=== PATIENT | male | born 1995 | race Caucasian/White ===

== ENCOUNTER 2018-09-06 12:14 | Emergency (ER) | payer SELFPAY ==
[~2018-09-06] VITALS: Ht 182.9 cm; Wt 136.1 kg
[~2018-09-06 12:14] MED LIST: SINGULAIR
--- NOTE | 2018-09-06 12:44 | ED Lower Extremity ---
General Chief Complaint: Lower Extremity Stated Complaint: RT FOOT INJ Nursing Triage Note: PT AMB TO TRIAGE WITH COMPLAINT OF RIGHT ANKLE INJURY. STATES HE CAUGHT FOOT IN LADDER AT WORK YESTERDAY, STATES HE HEARD A POP. STATES LAST NIGHT HE HAD TO RUN THROUGH A FIELD DUE TO STORMS AND STATES IT AGGRAVATED HIS ANKLE MORE. Nursing Sepsis Screen: No Definite Risk Source: patient Exam Limitations: no limitations History of Present Illness Date Seen by Provider: September 06, 2018 Time Seen by Provider: 12:41 Initial Comments To ER with reports of right ankle injury. He was at work yesterday when he stepped down off of a ladder, heard a pop in the ankle. Then he had to run t hrough a field last night to get to a storm assisted and thinks that he worsened whenever injury he initially sustained. No knee pain. Onset: just prior to arrival Severity: moderate Pain/Injury Location: right foot, right ankle Method of Injury: fell, twisted Modifying Factors: Worse With Movement Allergies and Home Medications Allergies Coded Allergies: No Known Allergies (Unverified Allergy, Mild, 09/18/08) Home Medications Hydrocodone/Acetaminophen 1 Each Tablet, 1 TAB PO Q4-6HR Prescribed by: JACQUELINE GOLDEN on 09/06/18 1322 Patient Home Medication List Home Medication List Reviewed: Yes Review of Systems Constitutional: see HPI EENTM: see HPI Respiratory: no symptoms reported Cardiovascular: no symptoms reported Genitourinary: no symptoms reported Musculoskeletal: see HPI Skin: no symptoms reported Psychiatric/Neurological: No Symptoms Reported Past Bmqyzfx-Avukzt-Sshdpy Hx Patient Social History Alcohol Use: Occasionally Uses Recreational Drug Use: No Smoking Status: Never a Smoker Recent Foreign Travel: No Contact w/Someone Who Travel: No Recent Infectious Disease Expo: No Immunizations Up To Date Tetanus Booster (TDap): Less than 5yrs PED Vaccines UTD: Yes Seasonal Allergies Seasonal Allergies: No Past Medical History Asthma Reproductive Disorders: No Adverse Reaction/Blood Tranf: No Physical Exam Vital Signs Vital Signs - First Documented 09/06/18 12:23 Pulse 90 Resp 20 B/P (MAP) 150/82 (104) Pulse Ox 97 O2 Delivery Room Air Capillary Refill : Less Than 3 Seconds Height, Weight, BMI Height: 6'0" Weight: 300lbs. oz. 136.513050wb; BMI Method:Stated General Appearance: WD/WN, no apparent distress HEENT: PERRL/EOMI, normal ENT inspection Respiratory: no respiratory distress, no accessory muscle use Hips: bilateral hip non-tender, bilateral hip normal inspection, bilateral hip normal range of motion Legs: bilateral leg non-tender, bilateral leg normal inspection, bilateral leg normal range of motion Knees: bilateral knee non-tender, bilateral knee normal inspection, bilateral knee normal range of motion Ankles: right ankle pain, right ankle soft tissue tenderness, right ankle swelling Feet: right foot pain, right foot soft tissue tenderness, right foot swelling Neurologic/Psychiatric: alert, normal mood/affect, oriented x 3 Skin: normal color, warm/dry Progress/Results/Core Measures Results/Orders My Orders Orders - JACQUELINE GOLDEN APRN Ankle, Right, 3 Views (09/06/18 12:36) Foot, Right, 3 View (09/06/18 12:36) Crutches (09/06/18 12:36) Vital Signs/I&O 09/06/18 12:23 Pulse 90 Resp 20 B/P (MAP) 150/82 (104) Pulse Ox 97 O2 Delivery Room Air Blood Pressure Mean: 104 Diagnostic Imaging Diagonstic Imaging: Xray Comments NAME: BLAINE GONZÁLES [facility] REC#: [id number] PT STATUS: REG ER : 1995 PHYSICIAN: JACQUELINE GOLDEN APRN ADMIT DATE: 09/06/18/ER Draft Date of Exam:09/06/18 FOOT, RIGHT, 3 VIEW INDICATION: Fell off a ladder with injury to right foot. TIME OF EXAM: 12:56 PM 3 views of the right foot were obtained. FINDINGS: Lateral portion of the right foot does show an osseous density just lateral to the anterior aspect of the calcaneus. This is suspicious for fracture fragment. This measures approximately 8 mm in size. Remainder of the midfoot is unremarkable. The metatarsals appear to be intact. The phalanges are intact. Joint spaces are maintained IMPRESSION: Findings suspicious for fracture fragment along the lateral mid foot, perhaps arising from the lateral aspect of the calcaneus. Clinical correlation for pain at this location is recommended. No other abnormality is seen. Dictated on workstation # [id number] Dict: 09/06/18 1313 Trans: 09/06/18 1319 [id number] Interpreted by: FAITH AKINS MD Electronically signed by: Departure Impression Primary Impression: Avulsion fracture of right ankle Additional Impression: Right ankle sprain Qualified Codes: S93.401A - Sprain of unspecified ligament of right ankle, initial encounter Disposition: HOME, SELF-CARE Condition: Stable Departure-Patient Inst. Decision time for Depature: 12:44 Referrals: MATTHEW ARGUETA DPM NO,LOCAL PHYSICIAN (PCP) Primary Care Physician JITENDRA BARLOW MD, MICHAEL P MD Patient Instructions: Ankle Fracture (DC) Add. Discharge Instructions: 1. Wear the boot at all times except when sleeping or showering for the next 3-4 weeks. Follow-up with one of the orthopedic surgeons listed within the next few weeks to ensure that this is healing appropriately. Do not bear any weight on the right ankle for about 2 weeks or until released by orthopedics. Use crutches when walking. Follow up with Dr Barlow on MondaySeptember 11 at 10AM Scripts Hydrocodone/Acetaminophen ([place] 5-325 Tablet) 1 Each Tablet 1 TAB PO Q4-6HR for Pain MDD 10 TABS for 7 Days, #14 TAB Prov: JACQUELINE GOLDEN APRN 09/06/18 Work/School Note: Work Release Form Date Seen in the Emergency Department: September 06, 2018 Return to Work: September 09, 2018 JACQUELINE GOLDEN APRN September 06, 2018 12:44
--- NOTE | 2018-09-06 13:17 | Diagnostic Imaging Report ---
INDICATION: Fall with right ankle injury. AP, oblique and lateral views of the right ankle are obtained. FINDINGS: There is incompletely corticated ossific fragment projecting lateral to the hindfoot. This may represent calcaneal avulsion fracture. Ankle mortise is intact. There is no abnormal lytic or sclerotic focus. IMPRESSION: Possible avulsion along the lateral hindfoot. Clinical correlation site of pain would be useful. Otherwise no ankle abnormality is seen. Dictated by: Dictated on workstation # [id number]
--- NOTE | 2018-09-06 13:20 | Diagnostic Imaging Report ---
INDICATION: Fell off a ladder with injury to right foot. TIME OF EXAM: 12:56 PM 3 views of the right foot were obtained. FINDINGS: Lateral portion of the right foot does show an osseous density just lateral to the anterior aspect of the calcaneus. This is suspicious for fracture fragment. This measures approximately 8 mm in size. Remainder of the midfoot is unremarkable. The metatarsals appear to be intact. The phalanges are intact. Joint spaces are maintained IMPRESSION: Findings suspicious for fracture fragment along the lateral mid foot, perhaps arising from the lateral aspect of the calcaneus. Clinical correlation for pain at this location is recommended. No other abnormality is seen. Dictated by: Dictated on workstation # [id number]
[2018-09-06] MEDS ORDERED: HYDR-4226 PO (13:22)
[2018-09-06 13:40] VITALS: BP 145/80
--- OUTSIDE RECORDS SUMMARY | 2018-09-06 22:28 | XMS REPORT ---
Author Author BRE JOHANSEN [facility] eClinicalWorks Address Unknown Phone Unavailable Care Team Providers Care Wheel Lacer And Truer Name Role Phone BRE JOHANSEN CP Unavailable Allergies, Adverse Reactions, Alerts Substance Reaction Event Type N.K.D.A. 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 Problem Elevated blood pressure reading without diagnosis of hypertension 796.2 Active Problem Obesity, unspecified 278.00 Active Problem Acute sinusitis, unspecified 461.9 Active Medications No Known Medications Procedures Procedure Coding System Code Date Office Visit, Est Pt., Level 3 CPT-4 58409 Dec 19, 2014 Vital Signs Date/Time: Dec 19, 2014 Temperature 98.3 F BMIPercentile 97.74 % Weight 230.6 lbs Height 72 in BMI 31.27 Index Blood Pressure Diastolic 68 mmHg Blood Pressure Systolic 126 mmHg Cardiac Monitoring Heart Rate 72 bpm Wt Percentile 98.71 % Ht Percentile 83.76 % Results No Known Results Summary Purpose eClinicalWorks Submission
--- OUTSIDE RECORDS SUMMARY | 2018-09-06 22:28 | XMS REPORT ---
Author Author Migration, Doctor Organization [facility] Address Unknown Phone Unavailable Care Team Providers Care Enterprise Analyst Name Role Phone Migration, Doctor Unavailable Unavailable PROBLEMS Unknown Problems ALLERGIES No Information ENCOUNTERS Encounter Location Date Diagnosis [facility] [address] [address] August, [facility] [address] [address] May, Gastroesophageal reflux disease, esophagitis presence not specified K21.9 [facility] [address] [address] Apr, Gastritis K29.70 and Bilateral impacted cerumen H61.23 [place] [address] [address] 14 Jan, 2015 Acute nasopharyngitis J00 [place] [address] [address] 08 Dec, 2014 Routine child health exam V20.2 ; Gastroenteritis 558.9 ; Dietary counseling and surveillance V65.3 and Exercise counseling V65.41 [place] [address] [place] [id number] [place] [address] 04 Dec, 2014 Gastroenteritis 558.[address] [facility] [address] [place] [id number] [place] [id number] 02 Dec, 2014 Encounter for dental examination V72.2 [place] [address] [address] 14 Jul, 2014 [place] [address] [address] 13 Jul, 2014 [facility] [address] [address] Jun, [facility] [address] [address] Jun, [facility] [address] [address] May, [facility] [address] [place] [address] May, [facility] [id number] [place] [address] Jan, [facility] [address] [address] Jan, [facility] [id number] [place] [address] Dec, [facility] [id number] [place] [address] Dec, [facility] [address] [place] [address] Dec, [facility] [address] [place] [address] Dec, [facility] [address] [place] [address] Nov, IMMUNIZATIONS No Known Immunizations SOCIAL HISTORY Never Assessed [place] [facility] [place] VITAL SIGNS MEDICATIONS Unknown Medications RESULTS No Results PROCEDURES No Known procedures INSTRUCTIONS MEDICATIONS ADMINISTERED No Known Medications MEDICAL (GENERAL) HISTORY Type Description Date Medical History congenital heart defect (hole in heart) Hospitalization History RSV as child
--- OUTSIDE RECORDS SUMMARY | 2018-09-06 22:28 | XMS REPORT ---
Author Author BRE JOHANSEN [facility] eClinicalWorks Address Unknown Phone Unavailable Care Team Providers Care Posting Clerk Name Role Phone BRE JOHANSEN CP Unavailable Allergies, Adverse Reactions, Alerts Substance Reaction Event Type N.K.D.A. 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 Age 12-17 CPT-4 76352 Dec 23, 2014 Office Visit, Est Pt., Level 3 CPT-4 28599 Dec 23, 2014 VISUAL ACUITY SCREEN CPT-4 35182 Dec 23, 2014 Vital Signs Date/Time: Dec 23, 2014 BMIPercentile 97.95 % Temperature 98.4 F Wt Percentile 98.84 % Weight 233.2 lbs Height 72 in Hearing Right ear: 1000:P, 2000:P, 4000:P, 6000:P, Left ear: 1000:P, 2000:P, 4000:P, 6000:P P / L Blood Pressure Diastolic 66 mmHg Blood Pressure Systolic 126 mmHg Cardiac Monitoring Heart Rate 70 bpm Ht Percentile 83.76 % BMI 31.62 Index Results No Known Results Summary Purpose eClinicalWorks Submission
--- OUTSIDE RECORDS SUMMARY | 2018-09-06 22:28 | XMS REPORT ---
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
--- OUTSIDE RECORDS SUMMARY | 2018-09-06 22:28 | XMS REPORT ---
Author Author BRIGETTE ANGEL Organization eClinicalWorks Address Unknown Phone Unavailable Care Team Providers Care Hand Bootmaker Name Role Phone BRIGETTE ANGEL CP Unavailable Allergies, Adverse Reactions, Alerts Substance Reaction Event Type N.K.D.A. Info Not Available Non Drug Allergy Problems Problem Type Condition Code Onset Dates Condition Status Assessment Bilateral impacted cerumen H61.23 Active Problem Dizziness and giddiness 780.4 Active Assessment Gastritis K29.70 Active Problem Influenza with other respiratory manifestations [...] Instructions Start Date End Date Status Dosage ZyrTEC NDC 0 10 MG Orally not defined Zantac 150 Maximum Strength NDC [address]-39 150 MG Orally Twice a day Apr 22, 2015 1 tablet Procedures Procedure Coding System Code Date Office Visit, Est Pt., Level 3 CPT-4 48944 Apr 22, 2015 Vital Signs Date/Time: Apr 22, 2015 Temperature 99.4 F BMIPercentile 98.58 % Weight 238 lbs Height 71 in BMI 33.19 Index Blood Pressure Diastolic 72 mmHg Blood Pressure Systolic 118 mmHg Cardiac Monitoring Heart Rate 56 bpm Wt Percentile 98.94 % Ht Percentile 72.35 % Results No Known Results Summary Purpose eClinicalWorks Submission
--- OUTSIDE RECORDS SUMMARY | 2018-09-06 22:28 | XMS REPORT ---
Author Author ROBIN GRAHAM Organization eClinicalWorks Address Unknown Phone Unavailable Care Team Providers Care Carpet Yarn Winder Operator Name Role Phone ROBIN GRAHAM CP Unavailable Allergies, Adverse Reactions, Alerts Substance Reaction Event Type N.K.D.A. 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 Problem Elevated blood pressure reading without diagnosis of hypertension 796.2 Active Problem Obesity, unspecified 278.00 Active Problem Acute sinusitis, unspecified 461.9 Active Medications No Known Medications Procedures Procedure Coding System Code Date HETEROPHILE ANTIBODIES CPT-4 09336 Jan 28, 2015 Office Visit, Est Pt., Level 3 CPT-4 14983 Jan 28, 2015 STREP A ASSAY W/OPTIC CPT-4 13878 Jan 28, 2015 Vital Signs Date/Time: Jan 28, 2015 Cardiac Monitoring Heart Rate 88 bpm Temperature 98.0 F Weight 232.1 lbs Wt Percentile 98.75 % Blood Pressure Diastolic 84 mmHg Blood Pressure Systolic 130 mmHg Results Name Result Date Reference Range Unit Abnormality Flag MONO TEST (IN HOUSE) Summary Purpose eClinicalWorks Submission
--- OUTSIDE RECORDS SUMMARY | 2018-09-06 22:28 | XMS REPORT | Continuity of Care Document ---
Author Organization Unknown Address Unknown Allergies Active Description Code Type Severity Reaction Onset Reported/Identified Relationship to Patient Clinical Status Yes NKANo Known Allergies NKA Miscellaneous Allergy Mild N/A 09/18/2008 Medications There is no data. Problems Date Dx Coded Attending Type Code Diagnosis Diagnosed By 04/30/2012 Ot 079.99 04/30/2012 Ot 787.03 04/30/2012 Ot 787.91 12/14/2012 746.9 UNSPECIFIED CONGENITAL ANOMALY OF HEART 12/14/2012 780.4 DIZZINESS AND VERTIGO 12/14/2012 796.2 ELEVATED BLOOD PRESSURE READING WITHOUT DIAGNOSIS OF HYPERTENSION 12/14/2012 746.9 UNSPECIFIED CONGENITAL ANOMALY OF HEART 12/14/2012 780.4 DIZZINESS AND VERTIGO 12/14/2012 796.2 ELEVATED BLOOD PRESSURE READING WITHOUT DIAGNOSIS OF HYPERTENSION 12/14/2012 KHOA HAMPTON MD 746.9 UNSPECIFIED CONGENITAL ANOMALY OF HEART 12/14/2012 KHOA HAMPTON MD 780.4 DIZZINESS AND VERTIGO 12/14/2012 KHOA HAMPTON MD 796.2 ELEVATED BLOOD PRESSURE READING WITHOUT DIAGNOSIS OF HYPERTENSION 12/14/2012 KHOA HAMPTON MD 746.9 UNSPECIFIED CONGENITAL ANOMALY OF HEART 12/14/2012 KHOA HAMPTON MD 780.4 DIZZINESS AND VERTIGO 12/14/2012 KHOA HAMPTON MD 796.2 ELEVATED BLOOD PRESSURE READING WITHOUT DIAGNOSIS OF HYPERTENSION 12/14/2012 ALVARADO DUBOIS DO 746.9 UNSPECIFIED CONGENITAL ANOMALY OF HEART 12/14/2012 ALVARADO DUBOIS DO 780.4 DIZZINESS AND VERTIGO 12/14/2012 ALVARADO DUBOIS DO 796.2 ELEVATED BLOOD PRESSURE READING WITHOUT DIAGNOSIS OF HYPERTENSION 12/18/2012 786.50 UNSPECIFIED CHEST PAIN 12/18/2012 KHOA HAMPTON MD 786.50 UNSPECIFIED CHEST PAIN 12/18/2012 KHOA HAMPTON MD 786.50 UNSPECIFIED CHEST PAIN 12/18/2012 ALVARADO DUBOIS DO 786.50 UNSPECIFIED CHEST PAIN 01/04/2013 BERTA JOHNS, KHOA 278.00 OBESITY 01/04/2013 KHOA HAMPTON MD 477.0 ALLERGIC RHINITIS DUE TO POLLEN 01/04/2013 BERTA JOHNS, KHOA 278.00 OBESITY 01/04/2013 KHOA HAMPTON MD 477.0 ALLERGIC RHINITIS DUE TO POLLEN 01/04/2013 ALVARADO DUBOIS DO 278.00 OBESITY 01/04/2013 ALVARADO DUBOIS DO 477.0 ALLERGIC RHINITIS DUE TO POLLEN 06/03/2014 ALVARADO DUBOIS DO 487.1 INFLUENZA 07/12/2014 ALVARADO DUBOIS DO 461.9 SINUSITIS ACUTE 11/03/2014 ABRAHAM SCHULTZ MD Ot 845.00 11/03/2014 ABRAHAM SCHULTZ MD Ot 959.7 11/03/2014 ABRAHAM SCHULTZ MD Ot E000.8 11/03/2014 ABRAHAM SCHULTZ MD Ot E927.0 Procedures Code [place] [address] XRAY CHEST 2 VIEW 12/18/2012 45252 EKG, TRACING (IN-HOUSE) 12/18/2012 Cardiolog [facility], Cardiology 12/21/2012 41598 STREP A (IN-HOUSE) 01/04/2013 Results There is no data. Encounters ACCT No. Visit Date/Time Discharge Status Pt. Type Provider Facility Loc./Unit Complaint [id number] 07/12/2014 13:02:00 07/12/2014 23:59:59 CLS Outpatient ALVARADO DUBOIS DO [id number] 01/04/2013 11:02:00 01/04/2013 23:59:59 CLS Outpatient KHOA HAMPTON MD [id number] 01/04/2013 11:02:00 01/04/2013 23:59:59 CLS Outpatient KHOA HAMPTON MD [id number] 12/18/2012 15:58:00 Document Registration [id number] 12/14/2012 08:19:00 Document Registration [id number] 11/03/2014 02:04:44 ACT Document Registration [id number] 11/03/2014 01:20:00 11/03/2014 01:44:00 DIS Emergency ABRAHAM SCHULTZ MD [facility] [id number] 04/30/2012 20:20:00 Document Registration
--- OUTSIDE RECORDS SUMMARY | 2018-09-06 22:28 | XMS REPORT ---
Author Author Migration, Doctor Organization [facility] Address Unknown Phone Unavailable Care Team Providers Care Hot Dip Tinning Supervisor Name Role Phone Migration, Doctor Unavailable Unavailable PROBLEMS Unknown Problems ALLERGIES No Information ENCOUNTERS Encounter Location Date Diagnosis [facility] [address] [address] August, [facility] [address] [address] May, Gastroesophageal reflux disease, esophagitis presence not specified K21.9 [facility] [address] [address] Apr, Gastritis K29.70 and Bilateral impacted cerumen H61.23 [place] [address] [address] 14 Jan, 2015 Acute nasopharyngitis J00 [place] [address] [address] 08 Dec, 2014 Routine child health exam V20.2 ; Gastroenteritis 558.9 ; Dietary counseling and surveillance V65.3 and Exercise counseling V65.41 [place] [address] [address] [place] [id number] [place] [address] 04 Dec, 2014 Gastroenteritis 558.9 and Allergic rhinitis 477.9 [facility] [address] [place] [id number] [place] [id number] 02 Dec, 2014 Encounter for dental examination V72.2 [place] [address] [address] 14 Jul, 2014 [place] [address] [address] 13 Jul, 2014 [facility] [address] [address] Jun, [facility] [address] [place] [id number] [place] [address] Jun, [facility] [id number], [place] [address] May, [facility] [id number], [place] [address] May, [facility] [id number], [place] [address] Jan, [facility] [id number] [place] [address] Jan, [facility] [id number] [place] [address] Dec, [facility] [address] [place] [address] Dec, [facility] [id number] [place] [address] Dec, [facility] [address], [place] [address] Dec, [facility] [id number], [place] [address] Nov, IMMUNIZATIONS No Known Immunizations SOCIAL HISTORY Never Assessed REASON FOR VISIT [facility] [place] PLAN OF CARE VITAL SIGNS MEDICATIONS Medication Instructions Dosage Frequency Start Date End Date Duration Status Augmentin 875-125 mg 1 tablet by Oral route 2 times per day for 7 day(s) Jun, Active Tamiflu 75 mg 1 capsule by Oral route 2 times per day for 5 day(s) Treatment Dosing May, Active RESULTS No Results PROCEDURES No Known procedures INSTRUCTIONS MEDICATIONS ADMINISTERED No Known Medications MEDICAL (GENERAL) HISTORY Type Description Date Medical History congenital heart defect (hole in heart) Hospitalization History RSV as child
== END 2018-09-06 13:45 | disposition home or self-care (01) ==
LOC: EDUNIT# 12:14 → ER 12:16
DX: S82.891A Other fracture of right lower leg, initial encounter for closed fracture (principal); J45.909 Unspecified asthma, uncomplicated; X50.1XXA Overexertion from prolonged static or awkward postures, initial encounter; Y92.59 Other trade areas as the place of occurrence of the external cause; Y99.0 Civilian activity done for income or pay
CPT/HCPCS: 73610; 73630

== ENCOUNTER 2021-08-01 09:19 | Emergency (ER) | payer SELFPAY ==
[~2021-08-01] VITALS: Ht 182 cm; Wt 140.0 kg
[~2021-08-01 09:19] MED LIST changes: +HYDR-4226 PO
[2021-08-01 09:44] LABS: BASOPHILS % (AUTO) 0 % (0-10); EOSINOPHILS # (AUTO) 0.1 10^3/uL (0.0-0.3); EOSINOPHILS % (AUTO) 1 % (0-10); HEMATOCRIT 43 % (40-54); HEMOGLOBIN 14.6 g/dL (13.3-17.7); LYMPHOCYTES # (AUTO) 2.4 10^3/uL (1.0-4.0); LYMPHOCYTES % (AUTO) 28 % (12-44); MEAN CORPUSCULAR HEMOGLOBIN 30 pg (25-34); MEAN CORPUSCULAR HGB CONC 34 g/dL (32-36); MEAN CORPUSCULAR VOLUME 90 fL (80-99); MEAN PLATELET VOLUME 9.5 fL (9.0-12.2); MONOCYTES # (AUTO) 0.8 10^3/uL (0.0-1.0); MONOCYTES % (AUTO) 9 % (0-12); NEUTROPHILS # (AUTO) 5.1 10^3/uL (1.8-7.8); NEUTROPHILS % (AUTO) 61 % (42-75); PLATELET COUNT 324 10^3/uL (130-400); WHITE BLOOD COUNT 8.3 10^3/uL (4.3-11.0)
[2021-08-01] MEDS ORDERED: PANTOPRAZOLE 40 MG (PROTONIX) VIAL IV ONE (09:45)
[2021-08-01] MEDS ORDERED: NS IV 1000 ML 1,000 ML IV SCH (09:45)
[2021-08-01 09:52] LABS: ALBUMIN 4.6 GM/DL (3.2-4.5); CHLORIDE 103 MMOL/L (98-107); POTASSIUM 3.6 MMOL/L (3.6-5.0); SODIUM 140 MMOL/L (135-145)
[2021-08-01 09:53] LABS: CALCIUM 9.5 MG/DL (8.5-10.1)
[2021-08-01 09:54] LABS: GLUCOSE 98 MG/DL (70-105)
--- NOTE | 2021-08-01 09:54 | ED Abdominal Pain ---
General Chief Complaint: Abdominal/GI Problems Stated Complaint: ABD PAIN Nursing Triage Note: PT CO OF ABD PAIN /10, FOR APPROX 2 MONTHS, PT STATES VOMITS EVERYDAY, STATES PAST 2 DAYS HAS FELT LUMPS IN UPPER ABD BILATERALLY. STATE HAS 3-5 LOOSE STOOLS DAILY. DENIES FEVERS. STATES HAS QUIT DRINKING ALCOHOL 3 MONTHS AGO STATES DRANK ALOT OF VODKA DAILY. Source of Information: Patient Exam Limitations: No Limitations History of Present Illness Date Seen by Provider: Aug 01, 2021 Time Seen by Provider: 09:27 Initial Comments Patient to the ER by private conveyance with his significant other chief complaint that he has been having some fairly pronounced stabbing upper abdominal pain for the past 2 days. He quit drinking about a quarter of a gallon of vodka approximately 3 months ago. He has had problems with loose stools and morning vomiting for at least a year now. He does not follow routinely with doctors but recently he did go to [facility] and they put him on Carafate and pantoprazole. He is had no EGD or surgeries. He has not had any fever or chills. No known sick contacts. He does not have any other known medical history. He has mother and sister who had her gallbladder out and no primary family with pancreatitis. He is never been told that he has an ulcer. Allergies and Home Medications Allergies Coded Allergies: No Known Allergies (Unverified Allergy, Mild, 09/18/08) Patient Home Medication List Home Medication List Reviewed: Yes Hydrocodone/Acetaminophen (Hydrocodone/Acetaminophen 5 MG/325 MG TAB) 1 Each Tablet, 1 TAB PO Q4-6HR Prescribed by: JACQUELINE GOLDEN on 09/06/18 1322 Sucralfate (Carafate) 1 Gm Tablet, 1 GM PO QIDACHS Prescribed by: EL CEJA on 08/01/21 1323 Review of Systems Review of Systems Constitutional: No chills, No diaphoresis EENTM: No Blurred Vision, No Double Vision Respiratory: Denies Cough, Denies Orthopnea Cardiovascular: Denies Chest Pain, Denies Lightheadedness Gastrointestinal: See HPI, Abdominal Pain; Denies Constipated; Diarrhea, Nausea, Poor Fluid Intake, Vomiting Genitourinary: Denies Burning, Denies Discharge Musculoskeletal: No back pain, No joint pain Skin: No pruritus, No rash Psychiatric/Neurological: Denies Headache, Denies Numbness, Denies Paresthesia All Other Systems Reviewed Negative Unless Noted: Yes Past Rsbnuck-Smxfds-Nmqwyg Hx Patient Social History Tobacco Use?: No Substance use?: Yes Substance type: Marijuana Substance frequency: Daily Alcohol Use?: Yes Alcohol type: Hard Liquor Alcohol Frequency: Daily Pt feels they are or have been: No Immunizations Up To Date Tetanus Booster (TDap): Less than 5yrs PED Vaccines UTD: Yes First/Initial COVID19 Vaccinat: 2020 Second COVID19 Vaccination Alejandro: 2020 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 oz. 136.136202ue; 42.00 BMI Method:Stated General Appearance: WD/WN, no apparent distress, mild distress HEENT: PERRL/EOMI, pharynx normal Neck: full range of motion, normal inspection Respiratory: lungs clear, normal breath sounds, no respiratory distress, no accessory muscle use Cardiovascular: normal peripheral pulses, regular rate, rhythm, no edema Peripheral Pulses: 2+ Radial Pulses (R), 2+ Radial Pulses (L) Gastrointestinal: normal bowel sounds, soft, tenderness (Epigastric and espec ially right upper quadrant with positive Sinhg sign. Negative for Rovsing, psoas sign or other mesenteric signs) Extremities: normal inspection, normal capillary refill Neurologic/Psychiatric: alert, normal mood/affect, oriented x 3 Skin: normal color, warm/dry Progress/Results/Core Measures Results/Orders Lab Results Laboratory Tests Test 08/01/21 09:35 08/01/21 11:15 Range/Units White Blood Count 8.3 4.3-11.0 10^3/uL Red Blood Count 4.83 4.30-5.52 10^6/uL Hemoglobin 14.6 13.3-17.7 g/dL Hematocrit 43 40-54 % Mean Corpuscular Volume 90 80-99 fL Mean Corpuscular Hemoglobin 30 25-34 pg Mean Corpuscular Hemoglobin Concent 34 32-36 g/dL Red Cell Distribution Width 12.2 10.0-14.5 % Platelet Count 324 130-400 10^3/uL Mean Platelet Volume 9.5 9.0-12.2 fL Immature Granulocyte % (Auto) 0 % Neutrophils (%) (Auto) 61 42-75 % Lymphocytes (%) (Auto) 28 12-44 % Monocytes (%) (Auto) 9 0-12 % Eosinophils (%) (Auto) 1 0-10 % Basophils (%) (Auto) 0 0-10 % Neutrophils # (Auto) 5.1 1.8-7.8 10^3/uL Lymphocytes # (Auto) 2.4 1.0-4.0 10^3/uL Monocytes # (Auto) 0.8 0.0-1.0 10^3/uL Eosinophils # (Auto) 0.1 0.0-0.3 10^3/uL Basophils # (Auto) 0.0 0.0-0.1 10^3/uL Immature Granulocyte # (Auto) 0.0 0.0-0.1 10^3/uL Sodium Level 140 135-145 MMOL/L Potassium Level 3.6 3.6-5.0 MMOL/L Chloride Level 103 98-107 MMOL/L Carbon Dioxide Level 22 21-32 MMOL/L Anion Gap 15 H 5-14 MMOL/L Blood Urea Nitrogen 7 7-18 MG/DL Creatinine 0.91 0.60-1.30 MG/DL Estimat Glomerular Filtration Rate 121 BUN/Creatinine Ratio 8 Glucose Level 98 70-105 MG/DL Calcium Level 9.5 8.5-10.1 MG/DL Corrected Calcium 8.5-10.1 MG/DL Total Bilirubin 1.5 H 0.1-1.0 MG/DL Aspartate Amino Transf (AST/SGOT) 23 5-34 U/L Alanine Aminotransferase (ALT/SGPT) 29 0-55 U/L Alkaline Phosphatase 74 40-136 U/L C-Reactive Protein High Sensitivity 1.07 H 0.00-0.50 MG/DL Total Protein 8.0 6.4-8.2 GM/DL Albumin 4.6 H 3.2-4.5 GM/DL Lipase 23 8-78 U/L Urine Color YELLOW Urine Clarity CLEAR Urine pH 6.0 5-9 Urine Specific [place] <=1.005 1.016-1.022 Urine Protein NEGATIVE NEGATIVE Urine Glucose (UA) NEGATIVE NEGATIVE Urine Ketones NEGATIVE NEGATIVE Urine Nitrite NEGATIVE NEGATIVE Urine Bilirubin NEGATIVE NEGATIVE Urine Urobilinogen 0.2 < = 1.0 MG/DL Urine Leukocyte Esterase NEGATIVE NEGATIVE Urine RBC (Auto) NEGATIVE NEGATIVE Urine RBC NONE /HPF Urine WBC RARE /HPF Urine Crystals NONE /LPF Urine Bacteria NEGATIVE /HPF Urine Casts NONE /LPF Urine Mucus NEGATIVE /LPF Urine Culture Indicated NO My Orders Orders - EL CEJA Cbc With Automated Diff (08/01/21 09:38) Comprehensive Metabolic Panel (08/01/21 09:38) Hs C Reactive Protein (08/01/21 09:38) Lipase (08/01/21 09:38) Ed Iv/Invasive Line Start (08/01/21 09:38) Ns Iv 1000 Ml (Sodium Chloride 0.9%) (08/01/21 09:45) Pantoprazole Injection (Protonix Injecti (08/01/21 09:45) Ua Culture If Indicated (08/01/21 09:54) Lidocaine 2% Viscous 15 Ml (Xylocaine Vi (08/01/21 10:15) Antacid Suspension (Mylanta Suspension (08/01/21 10:15) Ed Iv/Invasive Line Start (08/01/21 10:14) Us Gallbladder [id number] (08/01/21 10:46) Ed Iv/Invasive Line Start (08/01/21 10:46) Medications Given in ED Current Medications Medications Dose Ordered Sig/Suha Route Start Time Stop Time Status Last Admin Dose Admin Al Hydrox/Mg Hydrox/Simethicone 30 ml ONCE ONCE PO 08/01/21 10:15 08/01/21 10:16 DC 08/01/21 10:46 30 ML Lidocaine HCl 15 ml ONCE ONCE PO 08/01/21 10:15 08/01/21 10:16 DC 08/01/21 10:46 15 ML Pantoprazole 40 mg ONCE ONCE IV 08/01/21 09:45 08/01/21 09:46 DC 08/01/21 09:54 40 MG Vital Signs/I&O 08/01/21 09:27 Temp 36.6 Pulse 102 Resp 18 B/P (MAP) 152/90 (110) Pulse Ox 99 Blood Pressure Mean: 110 Progress Progress Note #1: Time: 10:11 Progress Note Concern for gastritis or PUD however with his positive Singh sign we can get an ultrasound of his gallbladder. We will check some labs including a lipase which turned out to be okay. He does have an elevated bilirubin of 1.5. GI cocktail, pantoprazole IV and a liter of fluids and he says just with a liter of fluids and pantoprazole he is already feeling better. We will make appropriate referral to general surgery, Dr. Gutierrez. He was complaining of dark urine so were going to check a urinalysis. With his 1 year history of nausea vomiting and diarrhea this could be related to biliary disease, alcoholism or irritable bowel/inflammatory bowel so EGD/colonoscopy may be indicated on an outpatient basis. Progress Note #2: Time: 13:15 Progress Note GI cocktail made all the symptoms go away and he feels much better having follow-up with Dr. Gutierrez outpatient. Extend his Carafate and Prilosec Diagnostic Imaging Diagonstic Imaging: Ultrasound Plain Films/CT/US/NM/MRI: abdomen Comments No stones or ductal dilatation. No significant thickening of the gallbladder wall. No free fluid. NAME: ELI[facility]BLAINE D [facility] REC#: [id number] PT STATUS: REG ER : 1995 PHYSICIAN: EL CEJA MD ADMIT DATE: 08/01/21/ER Draft Date of Exam:08/01/21 US GALLBLADDER [id number] PROCEDURE: US Gallbladder. TECHNIQUE: Multiple real-time grayscale images were obtained over the right upper quadrant in various projections. INDICATION: Right upper quadrant abdominal pain. COMPARISON: None. FINDINGS: Mild hyperechogenicity of the liver consistent with fatty infiltration. No focal mass or fluid collection is identified. Normal hepatopetal flow in the main portal vein. Mild gallbladder wall thickening which measures 0.3 cm. No cholelithiasis or pericholecystic fluid. Negative sonographic Singh sign. The common bile duct, pancreas and aorta are obscured by bowel gas. The IVC is patent. The right kidney measures 13.2 cm. No right renal mass, cyst, shadowing stone or hydronephrosis. No free fluid in the visualized abdomen. IMPRESSION: 1. Examination limited by body habitus and bowel gas. 2. Mild gallbladder wall thickening measuring 0.3 cm. The gallbladder is otherwise unremarkable 3. Hepatic steatosis. Dictated on workstation # [id number] Dict: 08/01/21 1316 Trans: 08/01/21 1320 [facility] [id number] Interpreted by: EWA ALLEN MD Electronically signed by: Reviewed: Reviewed by Me Departure Impression Primary Impression: Gastritis Qualified Codes: K29.00 - Acute gastritis without bleeding Disposition: HOME, SELF-CARE Condition: Stable Departure-Patient Inst. Decision time for Depature: 13:17 Referrals: [facility] [place] (PCP/Family) Primary Care Physician CINDY GUTIERREZ DO Patient Instructions: Gastritis (DC) Add. Discharge Instructions: Carafate half an hour before meals and at bedtime for the next couple weeks. Prilosec 20 mg twice a day. This week call Dr. Gutierrez, general surgery and request a follow-up appointment to discuss your symptoms and possible endoscopy if indicated. All discharge instructions reviewed with patient and/or family. Voiced understanding. Scripts Sucralfate (Carafate) 1 Gm Tablet 1 GM PO QIDACHS for 14 Days, #56 TAB 0 Refills Prov: EL CEJA 08/01/21 Copy Copies To 1: CINDY GUTIERREZ DO EL CEJA Aug 01, 2021 09:53
[2021-08-01 09:55] LABS: CARBON DIOXIDE 22 MMOL/L (21-32)
[2021-08-01 09:56] LABS: BILIRUBIN,TOTAL 1.5 MG/DL (0.1-1.0)
[2021-08-01 09:57] LABS: ALKALINE PHOSPHATASE 74 U/L (40-136)
[2021-08-01 09:58] LABS: CREATININE SERUM 0.91 MG/DL (0.60-1.30); GFR ESTIMATED 121
[2021-08-01 09:59] LABS: BUN/CREATININE RATIO 8
[2021-08-01 10:01] LABS: ALANINE AMINOTRANSFERASE 29 U/L (0-55); LIPASE 23 U/L (8-78)
[2021-08-01] MEDS ORDERED: ANTACID SUSP 30 ML UDC (MYLANTA) PO ONE (10:15)
[2021-08-01] MEDS ORDERED: LIDOCAINE 2% VISCOUS 15 ML UDC PO ONE (10:15)
[2021-08-01 11:20] LABS: BILIRUBIN,URINE NEGATIVE (NEGATIVE); CLARITY,URINE CLEAR; COLOR,URINE YELLOW; GLUCOSE, URINE (UA) NEGATIVE (NEGATIVE); KETONES,URINE NEGATIVE (NEGATIVE); LEUKOCYTE ESTERASE ,URINE NEGATIVE (NEGATIVE); NITRITE,URINE NEGATIVE (NEGATIVE); PROTEIN,URINE NEGATIVE (NEGATIVE)
[2021-08-01 11:27] LABS: BACTERIA,URINE NEGATIVE /HPF; WBC,URINE RARE /HPF
--- NOTE | 2021-08-01 13:20 | Diagnostic Imaging Report ---
PROCEDURE: US Gallbladder. TECHNIQUE: Multiple real-time grayscale images were obtained over the right upper quadrant in various projections. INDICATION: Right upper quadrant abdominal pain. COMPARISON: None. FINDINGS: Mild hyperechogenicity of the liver consistent with fatty infiltration. No focal mass or fluid collection is identified. Normal hepatopetal flow in the main portal vein. Mild gallbladder wall thickening which measures 0.3 cm. No cholelithiasis or pericholecystic fluid. Negative sonographic Singh sign. The common bile duct, pancreas and aorta are obscured by bowel gas. The IVC is patent. The right kidney measures 13.2 cm. No right renal mass, cyst, shadowing stone or hydronephrosis. No free fluid in the visualized abdomen. IMPRESSION: 1. Examination limited by body habitus and bowel gas. 2. Mild gallbladder wall thickening measuring 0.3 cm. The gallbladder is otherwise unremarkable 3. Hepatic steatosis. Dictated by: Dictated on workstation # [id number]
[2021-08-01] MEDS ORDERED: SUCR1TAB36 PO (13:23)
[2021-08-01 13:30] VITALS: BP 136/84
== END 2021-08-01 13:30 | disposition home or self-care (01) ==
LOC: EDUNIT# 09:19 → ER 09:21
DX: K29.70 Gastritis, unspecified, without bleeding (principal)
CPT/HCPCS: 36415; 76705; 80053; 81000; 83690; 85025; 86141

== ENCOUNTER 2021-08-15 00:39 | Emergency (ER) | payer SELFPAY ==
[~2021-08-15] VITALS: Ht 183 cm; Wt 138.0 kg
[~2021-08-15 00:39] MED LIST changes: +SUCR1TAB36 PO
[2021-08-15 01:17] VITALS: BP 143/91
[2021-08-15 01:28] LABS: HEMOGLOBIN 13.7 g/dL (13.3-17.7)
[2021-08-15 01:30] LABS: BASOPHILS # (AUTO) 0.1 10^3/uL (0.0-0.1); BASOPHILS % (AUTO) 1 % (0-10); EOSINOPHILS # (AUTO) 0.2 10^3/uL (0.0-0.3); EOSINOPHILS % (AUTO) 2 % (0-10); HEMATOCRIT 42 % (40-54); LYMPHOCYTES # (AUTO) 3.2 10^3/uL (1.0-4.0); LYMPHOCYTES % (AUTO) 32 % (12-44); MEAN CORPUSCULAR HEMOGLOBIN 30 pg (25-34); MEAN CORPUSCULAR HGB CONC 33 g/dL (32-36); MEAN CORPUSCULAR VOLUME 90 fL (80-99); MEAN PLATELET VOLUME 10.3 fL (9.0-12.2); MONOCYTES # (AUTO) 0.9 10^3/uL (0.0-1.0); MONOCYTES % (AUTO) 9 % (0-12); NEUTROPHILS # (AUTO) 5.9 10^3/uL (1.8-7.8); NEUTROPHILS % (AUTO) 58 % (42-75); PLATELET COUNT 206 10^3/uL (130-400); WHITE BLOOD COUNT 10.2 10^3/uL (4.3-11.0)
[2021-08-15 01:40] LABS: ALBUMIN 4.4 GM/DL (3.2-4.5); CHLORIDE 104 MMOL/L (98-107); POTASSIUM 3.4 MMOL/L (3.6-5.0); SODIUM 143 MMOL/L (135-145)
[2021-08-15 01:41] LABS: CALCIUM 9.2 MG/DL (8.5-10.1)
[2021-08-15 01:42] LABS: GLUCOSE 91 MG/DL (70-105)
[2021-08-15 01:43] LABS: CARBON DIOXIDE 23 MMOL/L (21-32); TOTAL PROTEIN 7.6 GM/DL (6.4-8.2)
[2021-08-15 01:44] LABS: BILIRUBIN,TOTAL 1.1 MG/DL (0.1-1.0)
[2021-08-15 01:46] LABS: ALKALINE PHOSPHATASE 71 U/L (40-136); CREATININE SERUM 0.83 MG/DL (0.60-1.30); GFR ESTIMATED 125
[2021-08-15 01:47] LABS: BUN/CREATININE RATIO 11
[2021-08-15 01:49] LABS: ALANINE AMINOTRANSFERASE 32 U/L (0-55)
--- NOTE | 2021-08-15 02:04 | ED GI ---
General Chief Complaint: Abdominal/GI Problems Stated Complaint: THROWING UP BLOOD Nursing Triage Note: C/O WAKING UP APPROX. 0000 VOMITTING SMALL AMOUNT BLOOD. Source of Information: Patient Exam Limitations: No Limitations History of Present Illness Date Seen by Provider: August 15, 2021 Time Seen by Provider: 01:45 Initial Comments Patient to the ER by private conveyance with chief complaint that he woke up around midnight with some nausea and vomited with some blood in emesis. No blood clots. No chest pain shortness of air. Nursing reports vital signs are normal. He is on Carafate for the past 2 months has had a ultrasound earlier this month a couple weeks ago demonstrating gallbladder with mild wall thickening 3 mm. He has a HIDA scan in 4 days. He follows with Romana and has discussed referral to Dr. Gutierrez. He has had no endoscopy before. His parents had problems with her gallbladder as well as GERD. He is taking his omeprazole 20 mg twice a day. He felt that it worked better than the pantoprazole. He has chronic loose stools and has never been discussed the possibility of irritable bowel or inflammatory bowel. No colonoscopy. Allergies and Home Medications Allergies Coded Allergies: No Known Allergies (Unverified Allergy, Mild, 09/18/08) Patient Home Medication List Home Medication List Reviewed: Yes Hydrocodone/Acetaminophen (Hydrocodone/Acetaminophen 5 MG/325 MG TAB) 1 Each Tablet, 1 TAB PO Q4-6HR Prescribed by: JACQUELINE GOLDEN on 09/06/18 1322 Sucralfate (Carafate) 1 Gm Tablet, 1 GM PO QIDACHS Prescribed by: EL CEJA on 08/01/21 1323 Review of Systems Review of Systems Constitutional: No chills, No diaphoresis EENTM: No Blurred Vision, No Double Vision Respiratory: Denies Cough, Denies Orthopnea Cardiovascular: Denies Chest Pain, Denies Edema Gastrointestinal: See HPI; Denies Abdominal Pain, Denies Blood Streaked Stools All Other Systems Reviewed Negative Unless Noted: Yes Past Quevhng-Mmjqum-Gxkclw Hx Patient Social History Tobacco Use?: No Substance use?: Yes Substance type: Marijuana Alcohol Use?: No Pt feels they are or have been: No Immunizations Up To Date Tetanus Booster (TDap): Less than 5yrs PED Vaccines UTD: Yes First/Initial COVID19 Vaccinat: 2020 Second COVID19 Vaccination Alejandro: 2020 Third COVID19 Vaccination Date: 2020 Seasonal Allergies Seasonal Allergies: No Past Medical History Surgery/Hospitalization HX: DENTAL, GASTRITIS Asthma Reproductive Disorders: No Adverse Reaction/Blood Tranf: No Physical Exam Vital Signs Vital Signs - First Documented 08/15/21 01:17 Temp 36.5 Pulse 68 Resp 18 B/P (MAP) 143/91 (108) Pulse Ox 100 O2 Delivery Room Air Capillary Refill : Less Than 3 Seconds Height/Weight/BMI Height: 6'0" Weight: 300lbs. oz. 136.970445em; 41.00 BMI Method:Stated General Appearance: WD/WN, no apparent distress HEENT: PERRL/EOMI, pharynx normal Neck: full range of motion, normal inspection Respiratory: lungs clear, normal breath sounds, no respiratory distress, no accessory muscle use Cardiovascular: normal peripheral pulses, regular rate, rhythm Gastrointestinal: normal bowel sounds, soft, tenderness (Mild tenderness in the right upper quadrant without Singh sign, mesenteric signs, Rovsing sign or McBurney's point tenderness or rebound tenderness.) Progress/Results/Core Measures Results/Orders Lab Results Laboratory Tests Test 08/15/21 01:18 Range/Units White Blood Count 10.2 4.3-11.0 10^3/uL Red Blood Count 4.61 4.30-5.52 10^6/uL Hemoglobin 13.7 13.3-17.7 g/dL Hematocrit 42 40-54 % Mean Corpuscular Volume 90 80-99 fL Mean Corpuscular Hemoglobin 30 25-34 pg Mean Corpuscular Hemoglobin Concent 33 32-36 g/dL Red Cell Distribution Width 12.3 10.0-14.5 % Platelet Count 206 130-400 10^3/uL Mean Platelet Volume 10.3 9.0-12.2 fL Immature Granulocyte % (Auto) 0 % Neutrophils (%) (Auto) 58 42-75 % Lymphocytes (%) (Auto) 32 12-44 % Monocytes (%) (Auto) 9 0-12 % Eosinophils (%) (Auto) 2 0-10 % Basophils (%) (Auto) 1 0-10 % Neutrophils # (Auto) 5.9 1.8-7.8 10^3/uL Lymphocytes # (Auto) 3.2 1.0-4.0 10^3/uL Monocytes # (Auto) 0.9 0.0-1.0 10^3/uL Eosinophils # (Auto) 0.2 0.0-0.3 10^3/uL Basophils # (Auto) 0.1 0.0-0.1 10^3/uL Immature Granulocyte # (Auto) 0.0 0.0-0.1 10^3/uL Percent Immature Platelet Fraction 7.1 0.0-7.6 % Sodium Level 143 135-145 MMOL/L Potassium Level 3.4 L 3.6-5.0 MMOL/L Chloride Level 104 98-107 MMOL/L Carbon Dioxide Level 23 21-32 MMOL/L Anion Gap 16 H 5-14 MMOL/L Blood Urea Nitrogen 9 7-18 MG/DL Creatinine 0.83 0.60-1.30 MG/DL Estimat Glomerular Filtration Rate 125 BUN/Creatinine Ratio 11 Glucose Level 91 70-105 MG/DL Calcium Level 9.2 8.5-10.1 MG/DL Corrected Calcium 8.9 8.5-10.1 MG/DL Total Bilirubin 1.1 H 0.1-1.0 MG/DL Aspartate Amino Transf (AST/SGOT) 22 5-34 U/L Alanine Aminotransferase (ALT/SGPT) 32 0-55 U/L Alkaline Phosphatase 71 40-136 U/L Total Protein 7.6 6.4-8.2 GM/DL Albumin 4.4 3.2-4.5 GM/DL Serum Alcohol < 10 <10 MG/DL My Orders Orders - DENICE CEJAUS Schultz Alcohol (08/15/21 00:51) Cbc With Automated Diff (08/15/21 00:51) Comprehensive Metabolic Panel (08/15/21 00:51) Vital Signs/I&O 08/15/21 01:17 Temp 36.5 Pulse 68 Resp 18 B/P (MAP) 143/91 (108) Pulse Ox 100 O2 Delivery Room Air Blood Pressure Mean: 108 Progress Progress Note : Time: 02:00 Progress Note Patient likely has functional gallbladder issues, peptic ulcer disease and irritable bowel versus inflammatory bowel. Since he is working on getting in with Dr. Gutierrez we would agree with this plan and endoscopy, HIDA scan and other work-up are probably in his near future. He is otherwise in no acute distress, having no nausea or vomiting now. We have given him return precautions and will check some basic labs. If they are okay then we will have him call Dr. Gutierrez on Monday and set some closer follow-up. Departure Impression Primary Impression: Gastritis and gastroduodenitis with hemorrhage Disposition: HOME, SELF-CARE Condition: Stable Departure-Patient Inst. Decision time for Depature: 02:05 Referrals: [facility] [place] [place] (PCP/Family) Primary Care Physician CINDY GUTIERREZ DO Patient Instructions: Gastritis (DC) Add. Discharge Instructions: Because of the presence of bleeding from what is likely an ulcer in your stomach you may need endoscopy to figure this out. Dr. Gutierrez would be happy to help you if you will call his office on Monday and make an appointment. Return to the ER promptly if you are having chest pain, shortness of air especially with exertion, copious large blood clots or other worrisome symptoms. Continue your medications as prescribed. All discharge instructions reviewed with patient and/or family. Voiced understa nding. Copy Copies To 1: CINDY GUTIERREZ DO EL CEJA August 15, 2021 02:04
== END 2021-08-15 02:09 | disposition home or self-care (01) ==
LOC: EDUNIT# 00:39 → ER 00:41
DX: K29.71 Gastritis, unspecified, with bleeding (principal); K29.91 Gastroduodenitis, unspecified, with bleeding
CPT/HCPCS: 80053; 85025; 99283; G0480; 36415; 80320

== ENCOUNTER → 2021-08-20 | Outpatient (CLI) | payer OTHER ==
[~2021-08-20] MED LIST changes: +CATHETER FLUSH 10 ML SYR IVP PRN
--- NOTE | 2021-08-20 15:05 | Diagnostic Imaging Report ---
INDICATION: Gastroesophageal reflux disease. The patient was administered 5.5 mCi technetium 99m Choletec and imaging over the abdomen was performed. At 30 minutes, the patient ingested 8 ounces of Ensure and a gallbladder ejection fraction was calculated. Patient denied discomfort during the exam. There is homogeneous uptake of activity by the liver with prompt excretion of activity into the gallbladder and common duct. There is normal passage of activity into the small bowel. Gallbladder ejection fraction is abnormally low at 13%. Normal values are 35% or greater. IMPRESSION: 1. Patent cystic duct and common bile duct. 2. Low gallbladder ejection fraction of 13%. Dictated by: Dictated on workstation # [id number]
== END ==
LOC: CARD 11:55
PROVIDERS: ATTEND Nurse Practitioner
DX: K21.9 Gastro-esophageal reflux disease without esophagitis (principal); K82.8 Other specified diseases of gallbladder
CPT/HCPCS: 78227; A9537

== ENCOUNTER 2021-09-01 13:00 | Emergency (ER) | payer OTHER ==
[~2021-09-01] VITALS: Ht 182 cm; Wt 135.0 kg
[~2021-09-01 13:00] MED LIST changes: -CATHETER FLUSH 10 ML SYR IVP PRN
--- NOTE | 2021-09-01 13:17 | ED Abdominal Pain ---
General Chief Complaint: Abdominal/GI Problems Stated Complaint: ABD PAIN Nursing Triage Note: PT AMBULATORY TO ER WITH SO. REPORTS UPPER ABD PAIN, WORSE OVER THE PAST 48 HOURS. HX OF GALLBLADDER PROBLEMS, RECENT HIDA SCAN. Source of Information: Patient Exam Limitations: No Limitations History of Present Illness Date Seen by Provider: September 01, 2021 Time Seen by Provider: 13:17 Initial Comments Gallbaldder colic x 2 days. Ate pizza just before pain. Allergies and Home Medications Allergies Coded Allergies: NKANo Known Allergies (Unverified Allergy, Mild, 09/18/08) Patient Home Medication List Hydrocodone/Acetaminophen (Hydrocodone/Acetaminophen 5 MG/325 MG TAB) 1 Each Tablet, 1 TAB PO Q4-6HR Prescribed by: JACQUELINE GOLDEN on 09/06/18 1322 Sucralfate (Carafate) 1 Gm Tablet, 1 GM PO QIDACHS Prescribed by: EL CEJA on 08/01/21 1323 Past Bygbeky-Yfkpoc-Xhohpi Hx Immunizations Up To Date Tetanus Booster (TDap): Less than 5yrs PED Vaccines UTD: Yes First/Initial COVID19 Vaccinat: 2020 Second COVID19 Vaccination Alejandro: 2020 Third COVID19 Vaccination Date: 2020 Seasonal Allergies Seasonal Allergies: No Past Medical History Surgery/Hospitalization HX: DENTAL, GASTRITIS Asthma Reproductive Disorders: No Adverse Reaction/Blood Tranf: No Physical Exam Vital Signs Vital Signs - First Documented 09/01/21 13:07 Temp 36.8 Pulse 106 Resp 20 B/P (MAP) 141/88 (105) Pulse Ox 98 Capillary Refill : Height/Weight/BMI Height: 6'0" Weight: 300lbs. oz. 136.527131el; 40.00 BMI Method:Stated Progress/Results/Core Measures Results/Orders Lab Results Laboratory Tests Test 09/01/21 13:15 Range/Units White Blood Count 9.6 4.3-11.0 10^3/uL Red Blood Count 4.76 4.30-5.52 10^6/uL Hemoglobin 14.1 13.3-17.7 g/dL Hematocrit 42 40-54 % Mean Corpuscular Volume 88 80-99 fL Mean Corpuscular Hemoglobin 30 25-34 pg Mean Corpuscular Hemoglobin Concent 34 32-36 g/dL Red Cell Distribution Width 12.1 10.0-14.5 % Platelet Count 309 130-400 10^3/uL Mean Platelet Volume 10.0 9.0-12.2 fL Immature Granulocyte % (Auto) 0 % Neutrophils (%) (Auto) 62 42-75 % Lymphocytes (%) (Auto) 28 12-44 % Monocytes (%) (Auto) 9 0-12 % Eosinophils (%) (Auto) 1 0-10 % Basophils (%) (Auto) 0 0-10 % Neutrophils # (Auto) 5.9 1.8-7.8 10^3/uL Lymphocytes # (Auto) 2.7 1.0-4.0 10^3/uL Monocytes # (Auto) 0.8 0.0-1.0 10^3/uL Eosinophils # (Auto) 0.1 0.0-0.3 10^3/uL Basophils # (Auto) 0.0 0.0-0.1 10^3/uL Immature Granulocyte # (Auto) 0.0 0.0-0.1 10^3/uL Sodium Level 142 135-145 MMOL/L Potassium Level 3.6 3.6-5.0 MMOL/L Chloride Level 104 98-107 MMOL/L Carbon Dioxide Level 27 21-32 MMOL/L Anion Gap 11 5-14 MMOL/L Blood Urea Nitrogen 9 7-18 MG/DL Creatinine 0.81 0.60-1.30 MG/DL Estimat Glomerular Filtration Rate 126 BUN/Creatinine Ratio 11 Glucose Level 105 70-105 MG/DL Calcium Level 9.8 8.5-10.1 MG/DL Corrected Calcium 8.5-10.1 MG/DL Total Bilirubin 1.3 H 0.1-1.0 MG/DL Aspartate Amino Transf (AST/SGOT) 22 5-34 U/L Alanine Aminotransferase (ALT/SGPT) 29 0-55 U/L Alkaline Phosphatase 77 40-136 U/L Total Protein 8.2 6.4-8.2 GM/DL Albumin 4.7 H 3.2-4.5 GM/DL Lipase 19 8-78 U/L My Orders Orders - ADRIANA BRENNAN [employer] Ua Culture If Indicated (09/01/21 13:06) Ed Iv/Invasive Line Start (09/01/21 13:17) Cbc With Automated Diff (09/01/21 13:17) Comprehensive Metabolic Panel (09/01/21 13:17) Lipase (5/18/22 13:17) Ct Abdomen/Pelvis Wo (09/01/21 13:42) Fentanyl Inj (Sublimaze Injection) (09/01/21 13:45) Medications Given in ED Current Medications Medications Dose Ordered Sig/Suha Route Start Time Stop Time Status Last Admin Dose Admin Fentanyl Citrate 50 mcg ONCE ONCE IVP 09/01/21 13:45 09/01/21 13:46 DC 09/01/21 13:48 50 MCG Vital Signs/I&O 09/01/21 13:07 Temp 36.8 Pulse 106 Resp 20 B/P (MAP) 141/88 (105) Pulse Ox 98 Blood Pressure Mean: 105 Departure Impression Primary Impression: Gallbladder colic Disposition: HOME, SELF-CARE Condition: Improved Departure-Patient Inst. Decision time for Depature: 14:26 Referrals: [facility] (PCP/Family) Primary Care Physician Patient Instructions: Gallbladder Diet Add. Discharge Instructions: Plan: 1. Keep follow up with Dr. Valverde tomorrow as previously scheduled. 2. Drink plenty of fluids to stay hydrated. Avoid fatty greasy foods. 3. Take Protonix once a day as directed. 4. Return for any new, concerning, or worsening symptoms. All discharge instructions reviewed with patient and/or family. Voiced understanding. Scripts Pantoprazole Sodium (Pantoprazole Sodium) 40 Mg Tablet. 40 MG PO DAILY for 30 Days, #30 TAB 0 Refills Prov: ADRIANA BRENNAN [employer] 09/01/21 ADRIANA BRENNAN [employer] September 01, 2021 13:17
[2021-09-01 13:24] LABS: BASOPHILS % (AUTO) 0 % (0-10); EOSINOPHILS # (AUTO) 0.1 10^3/uL (0.0-0.3); EOSINOPHILS % (AUTO) 1 % (0-10); HEMATOCRIT 42 % (40-54); HEMOGLOBIN 14.1 g/dL (13.3-17.7); LYMPHOCYTES # (AUTO) 2.7 10^3/uL (1.0-4.0); LYMPHOCYTES % (AUTO) 28 % (12-44); MEAN CORPUSCULAR HEMOGLOBIN 30 pg (25-34); MEAN CORPUSCULAR HGB CONC 34 g/dL (32-36); MEAN CORPUSCULAR VOLUME 88 fL (80-99); MONOCYTES # (AUTO) 0.8 10^3/uL (0.0-1.0); MONOCYTES % (AUTO) 9 % (0-12); NEUTROPHILS # (AUTO) 5.9 10^3/uL (1.8-7.8); NEUTROPHILS % (AUTO) 62 % (42-75); PLATELET COUNT 309 10^3/uL (130-400); WHITE BLOOD COUNT 9.6 10^3/uL (4.3-11.0)
[2021-09-01 13:29] LABS: ALBUMIN 4.7 GM/DL (3.2-4.5)
[2021-09-01 13:30] LABS: CHLORIDE 104 MMOL/L (98-107); POTASSIUM 3.6 MMOL/L (3.6-5.0); SODIUM 142 MMOL/L (135-145)
[2021-09-01 13:31] LABS: CALCIUM 9.8 MG/DL (8.5-10.1)
[2021-09-01 13:32] LABS: GLUCOSE 105 MG/DL (70-105); TOTAL PROTEIN 8.2 GM/DL (6.4-8.2)
[2021-09-01 13:33] LABS: CARBON DIOXIDE 27 MMOL/L (21-32)
[2021-09-01 13:34] LABS: BILIRUBIN,TOTAL 1.3 MG/DL (0.1-1.0)
[2021-09-01 13:36] LABS: ALKALINE PHOSPHATASE 77 U/L (40-136); CREATININE SERUM 0.81 MG/DL (0.60-1.30); GFR ESTIMATED 126
[2021-09-01 13:37] LABS: BUN/CREATININE RATIO 11
[2021-09-01 13:39] LABS: ALANINE AMINOTRANSFERASE 29 U/L (0-55); LIPASE 19 U/L (8-78)
[2021-09-01] MEDS ORDERED: fentaNYL INJ 100 MCG/2 ML AMP IVP ONE (13:45)
--- NOTE | 2021-09-01 14:08 | Diagnostic Imaging Report ---
EXAMINATION: CT abdomen and pelvis without contrast. TECHNIQUE: Multiple contiguous axial images were obtained through the abdomen and pelvis without the use of intravenous contrast. All CT scans use one or more of the following dose optimizing techniques: automated exposure control, MA and/or KvP adjustment based on patient size and exam type or iterative reconstruction. HISTORY: Right upper quadrant abdominal pain and nausea. COMPARISON: None available. FINDINGS: Lung bases: The lung bases are clear. Solid organs: The liver is normal. The gallbladder is normal. There is no biliary ductal dilation. Pancreas is normal. Spleen is normal. Adrenal glands are normal. The kidneys are normal without visualized calculus or hydronephrosis. Bowel: The stomach and small bowel are normal without obstruction. The colon and appendix are normal. Peritoneum: There is no intraperitoneal free fluid or free air. No suspicious lymphadenopathy. Vasculature: Normal without aneurysm. Musculoskeletal: No suspicious osseous lesion or compression fracture. Pelvis: The prostate gland is normal. The urinary bladder is normal. IMPRESSION: 1. No acute abnormality in the abdomen or pelvis. Dictated by: Dictated on workstation # [id number]
[2021-09-01] MEDS ORDERED: PANT40TA52 PO (14:29)
[2021-09-01] MEDS ORDERED: DICYCLOMINE 10 MG/ML (BENTYL) 2 ML AMP IM ONE (14:30)
[2021-09-01 14:32] LABS: BILIRUBIN,URINE NEGATIVE (NEGATIVE); CLARITY,URINE CLEAR; COLOR,URINE YELLOW; GLUCOSE, URINE (UA) NEGATIVE (NEGATIVE); KETONES,URINE NEGATIVE (NEGATIVE); LEUKOCYTE ESTERASE ,URINE NEGATIVE (NEGATIVE); NITRITE,URINE NEGATIVE (NEGATIVE); PH,URINE 6.5 (5-9); PROTEIN,URINE TRACE (NEGATIVE)
[2021-09-01 14:42] LABS: AMORPHOUS SEDIMENT,UR RARE AMOR URATES /LPF; BACTERIA,URINE NEGATIVE /HPF; WBC,URINE 0-2 /HPF
[2021-09-01 14:57] VITALS: BP 121/77
== END 2021-09-01 14:57 | disposition home or self-care (01) ==
LOC: EDUNIT# 13:00 → ER 13:02
DX: K80.20 Calculus of gallbladder without cholecystitis without obstruction (principal)
CPT/HCPCS: 36415; 74176; 80053; 81000; 83690; 85025

== ENCOUNTER 2021-09-03 07:19 | Outpatient (CLI) | payer SELFPAY ==
[~2021-09-03] VITALS: Ht 185.5 cm; Wt 147.5 kg
[~2021-09-03 07:19] MED LIST changes: +PANT40TA52 PO
[2021-09-09] MEDS ORDERED: ACHD5005 PO (12:38)
== END 2021-09-08 12:56 | disposition home or self-care (01) ==
LOC: PREOP 07:19
PROVIDERS: ATTEND Surgery
DX: Z01.818 Encounter for other preprocedural examination (principal); K82.8 Other specified diseases of gallbladder

== ENCOUNTER 2021-09-05 10:17 | Emergency (ER) | payer OTHER ==
[~2021-09-05] VITALS: Ht 182.8 cm; Wt 135.0 kg
[2021-09-05] MEDS ORDERED: fentaNYL INJ 100 MCG/2 ML AMP IVP STA (11:04)
--- NOTE | 2021-09-05 11:07 | ED Abdominal Pain ---
General Chief Complaint: Abdominal/GI Problems Stated Complaint: GALBLADDER PAIN Nursing Triage Note: HAVING PAIN FOR THE LAST TWO WEEKS, STATES IS ON THE SCHEDULE WITH MATT FOR GALBLADDER SURGERY ON MONDAY BUT "JUST CANT TAKE THE PAIN ANYMORE" Source of Information: Patient Exam Limitations: No Limitations (ELIGIO VELÁZQUEZ) History of Present Illness Date Seen by Provider: September 05, 2021 Time Seen by Provider: 11:04 Initial Comments Patient is a 26-year-old male with a history of biliary dyskinesia who is scheduled for surgery by Dr. Valverde on who presents ED for continuous worsening right upper quadrant and left upper quadrant abdominal pain. States he has been having pain over the past 2 weeks worse over the past 2 days. Vomiting today without any hematemesis. He has not been able to eat or drink. He states 2 days ago he went on a walk started feeling really nauseous and having severe pain. Pain has been for the most part constant described as sharp without radiation. Nausea without vomiting or diarrhea. Has been taken Tylenol without much improvement. Patient is concerned as he cannot take the pain any longer as well as not eating. Denies fever, chest pain, shortness of breath, cough, dysuria, hematuria (ELIGIO VELÁZQUEZ) Allergies and Home Medications Allergies Coded Allergies: NKANo Known Allergies (Unverified Allergy, Mild, 09/18/08) Patient Home Medication List Home Medication List Reviewed: Yes (ELIGIO VELÁZQUEZ) Hydrocodone/Acetaminophen (Hydrocodone/Acetaminophen 5 MG/325 MG TAB) 1 Each Tablet, 1 TAB PO Q4-6HR Prescribed by: JACQUELINE GOLDEN on 09/06/18 1322 Pantoprazole Sodium (Pantoprazole Sodium) 40 Mg Tablet.dr, 40 MG PO DAILY Prescribed by: ADRIANA BRENNAN on 09/01/21 1429 Sucralfate (Carafate) 1 Gm Tablet, 1 GM PO QIDACHS Prescribed by: EL CEJA on 08/01/21 1323 Review of Systems Review of Systems Constitutional: No chills, No diaphoresis EENTM: No Double Vision, No Eye Pain, No Mouth Pain, No Mouth Swelling Respiratory: Denies Cough Cardiovascular: Denies Chest Pain, Denies Edema Gastrointestinal: Abdominal Pain; Denies Diarrhea; Nausea, Vomiting Genitourinary: Denies Burning, Denies Frequency, Denies Flank Pain Musculoskeletal: No back pain Skin: No see HPI, No change in hair/nails (ELIGIO VELÁZQUEZ) All Other Systems Reviewed Negative Unless Noted: Yes (ELIGIO VELÁZQUEZ) Past Besqnpi-Wfwrxw-Jkllfv Hx Patient Social History Tobacco Use?: No Use of E-Cig and/or Vaping dev: No Substance use?: No Alcohol Use?: No Pt feels they are or have been: No (ELIGIO VELÁZQUEZ) Immunizations Up To Date Tetanus Booster (TDap): Less than 5yrs PED Vaccines UTD: Yes First/Initial COVID19 Vaccinat: RECEIVED, UNK WHEN Second COVID19 Vaccination Alejandro: RECEIVED, UNK WHEN Third COVID19 Vaccination Date: 2020 (ELIGIO VELÁZQUEZ) Seasonal Allergies Seasonal Allergies: No (ELIGIO VELÁZQUEZ) Past Medical History Surgery/Hospitalization HX: DENTAL, GASTRITIS Asthma Reproductive Disorders: No Adverse Reaction/Blood Tranf: No (ELIGIO VELÁZQUEZ) Physical Exam Vital Signs Vital Signs - First Documented 09/05/21 10:27 Temp 36.6 Pulse 58 Resp 20 B/P (MAP) 150/78 (102) Pulse Ox 100 O2 Delivery Room Air (JONNIE MONIQUE MD) Vital Signs Capillary Refill : Less Than 3 Seconds (ELIGIO VELÁZQUEZ) Height/Weight/BMI Height: 6'0" Weight: 300lbs. oz. [id number]; 40.00 BMI Method:Stated General Appearance: WD/WN, no apparent distress HEENT: PERRL/EOMI, normal ENT inspection, TMs normal, pharynx normal Neck: non-tender, full range of motion, supple, normal inspection Respiratory: chest non-tender, lungs clear, normal breath sounds, no respiratory distress, no accessory muscle use Cardiovascular: regular rate, rhythm, no edema, no gallop, no JVD Gastrointestinal: normal bowel sounds, soft, no organomegaly, tenderness (Right upper quadrant and left upper quadrant tenderness. Normal bowel sounds throughout.) Neurologic/Psychiatric: rotary adjuster II-XII nml as tested, no motor/sensory deficits, alert, normal mood/affect, oriented x 3 Skin: normal color, warm/dry (ELIGIO VELÁZQUEZ) Progress/Results/Core Measures Results/Orders Lab Results Laboratory Tests Test 09/05/21 11:00 Range/Units White Blood Count 9.2 4.3-11.0 10^3/uL Red Blood Count 4.73 4.30-5.52 10^6/uL Hemoglobin 14.0 13.3-17.7 g/dL Hematocrit 42 40-54 % Mean Corpuscular Volume 89 80-99 fL Mean Corpuscular Hemoglobin 30 25-34 pg Mean Corpuscular Hemoglobin Concent 33 32-36 g/dL Red Cell Distribution Width 12.2 10.0-14.5 % Platelet Count 318 130-400 10^3/uL Mean Platelet Volume 10.1 9.0-12.2 fL Immature Granulocyte % (Auto) 0 % Neutrophils (%) (Auto) 63 42-75 % Lymphocytes (%) (Auto) 28 12-44 % Monocytes (%) (Auto) 7 0-12 % Eosinophils (%) (Auto) 1 0-10 % Basophils (%) (Auto) 0 0-10 % Neutrophils # (Auto) 5.8 1.8-7.8 10^3/uL Lymphocytes # (Auto) 2.6 1.0-4.0 10^3/uL Monocytes # (Auto) 0.6 0.0-1.0 10^3/uL Eosinophils # (Auto) 0.1 0.0-0.3 10^3/uL Basophils # (Auto) 0.0 0.0-0.1 10^3/uL Immature Granulocyte # (Auto) 0.0 0.0-0.1 10^3/uL Sodium Level 142 135-145 MMOL/L Potassium Level 3.5 L 3.6-5.0 MMOL/L Chloride Level 103 98-107 MMOL/L Carbon Dioxide Level 25 21-32 MMOL/L Anion Gap 14 5-14 MMOL/L Blood Urea Nitrogen 6 L 7-18 MG/DL Creatinine 0.75 0.60-1.30 MG/DL Estimat Glomerular Filtration Rate 129 BUN/Creatinine Ratio 8 Glucose Level 94 70-105 MG/DL Calcium Level 9.6 8.5-10.1 MG/DL Corrected Calcium 9.3 8.5-10.1 MG/DL Total Bilirubin 1.3 H 0.1-1.0 MG/DL Aspartate Amino Transf (AST/SGOT) 21 5-34 U/L Alanine Aminotransferase (ALT/SGPT) 30 0-55 U/L Alkaline Phosphatase 77 40-136 U/L C-Reactive Protein High Sensitivity 0.50 0.00-0.50 MG/DL Total Protein 8.0 6.4-8.2 GM/DL Albumin 4.4 3.2-4.5 GM/DL Lipase 20 8-78 U/L (JONNIE MONIQUE MD) My Orders Orders - JONNIE MONIQUE MD Ed Iv/Invasive Line Start (09/05/21 10:26) Cbc With Automated Diff (09/05/21 10:26) Comprehensive Metabolic Panel (09/05/21 10:26) Hs C Reactive Protein (09/05/21 10:26) Lipase (09/05/21 10:26) (JONNIE MONIQUE MD) Vital Signs/I&O 09/05/21 09/05/21 10:27 12:19 Temp 36.6 Pulse 58 51 Resp 20 16 B/P (MAP) 150/78 (102) 123/64 Pulse Ox 100 99 O2 Delivery Room Air Room Air (JONNIE MONIQUE MD) Blood Pressure Mean: 102 Departure Communication (PCP) Patient with a history of biliary dyskinesia who presents ED with worsening pain over the past 2 days of his ruq and luq abd. No improvement with Tylenol. Has not been able to eat. Reports change in his diet to help with this pain. Sche duled for surgery by Dr. Valverde on for cholecystectomy. Had a HIDA scan that showed ejection fraction of 13% this past month. Lab work was ordered to rule out any evidence of leukocytosis. Lab work was otherwise unremarkable. Patient was given fentanyl with resolution of pain. Patient states he feels better and would like to be discharged. Did offer to contact Dr. Valverde patient states he wants to get the procedure done outpatient. Discussed diet changes. Continue with Tylenol. If any worsening symptoms return back to ED for further evaluation. Patient was slightly bradycardic here. History of bradycardia. Patient is currently asymptomatic. No known cardiac history. Dizziness, lightheadedness, chest pain or weakness. Follow-up outpatient if symptoms do develop. (ELIGIO VELÁZQUEZ) Impression Primary Impression: Biliary dyskinesia Disposition: HOME, SELF-CARE Condition: Stable Departure-Patient Inst. Decision time for Depature: 12:01 (ELIGIO VELÁZQUEZ) Referrals: [facility] [place] (PCP/Family) Primary Care Physician Patient Instructions: Gallbladder Diet Add. Discharge Instructions: Continue with follow-up with Dr. Valverde on for surgery. If any worsening symptoms return back to ED. Discussed gallbladder diet. All discharge instructions reviewed with patient and/or family. Voiced understanding. Work/School Note: Work Release Form Date Seen in the Emergency Department: September 05, 2021 Return to Work: September 10, 2021 ATTENDING PHYSICIAN NOTE: I was physically present as attending physician in the emergency department during the care of this patient. Prior records were reviewed. Patient has a known history of biliary dyskinesia. Labs were assessed during this visit. Labs and vital signs were reviewed. Patient did not appear to have evidence of acute cholecystitis or other complicating factors requiring admission. Case was discussed with KENIA Duval. (JONNIE MONIQUE MD) ELIGIO VELÁZQUEZ September 05, 2021 11:07 JONNIE MONIQUE MD September 05, 2021 20:18
[2021-09-05 11:09] LABS: BASOPHILS % (AUTO) 0 % (0-10); EOSINOPHILS # (AUTO) 0.1 10^3/uL (0.0-0.3); EOSINOPHILS % (AUTO) 1 % (0-10); HEMATOCRIT 42 % (40-54); LYMPHOCYTES # (AUTO) 2.6 10^3/uL (1.0-4.0); LYMPHOCYTES % (AUTO) 28 % (12-44); MEAN CORPUSCULAR HEMOGLOBIN 30 pg (25-34); MEAN CORPUSCULAR HGB CONC 33 g/dL (32-36); MEAN CORPUSCULAR VOLUME 89 fL (80-99); MEAN PLATELET VOLUME 10.1 fL (9.0-12.2); MONOCYTES # (AUTO) 0.6 10^3/uL (0.0-1.0); MONOCYTES % (AUTO) 7 % (0-12); NEUTROPHILS # (AUTO) 5.8 10^3/uL (1.8-7.8); NEUTROPHILS % (AUTO) 63 % (42-75); PLATELET COUNT 318 10^3/uL (130-400); WHITE BLOOD COUNT 9.2 10^3/uL (4.3-11.0)
[2021-09-05 11:18] LABS: ALBUMIN 4.4 GM/DL (3.2-4.5); POTASSIUM 3.5 MMOL/L (3.6-5.0)
[2021-09-05 11:19] LABS: CALCIUM 9.6 MG/DL (8.5-10.1)
[2021-09-05 11:22] LABS: BILIRUBIN,TOTAL 1.3 MG/DL (0.1-1.0)
[2021-09-05 11:24] LABS: CREATININE SERUM 0.75 MG/DL (0.60-1.30)
[2021-09-05 12:19] VITALS: BP 123/64
== END 2021-09-05 12:12 | disposition home or self-care (01) ==
LOC: EDUNIT# 10:17 → ER 10:19
DX: K82.8 Other specified diseases of gallbladder (principal)
CPT/HCPCS: 36415; 80053; 83690; 85025; 86141

== ENCOUNTER 2021-09-09 10:25 | Day surgery (SDC) | payer OTHER ==
[2021-09-09] VITALS (11 sets, daily range): BP systolic 96–130; BP diastolic 65–84
[~2021-09-09] VITALS: Ht 185.5 cm; Wt 147.5 kg
--- NOTE | 2021-09-09 10:40 | Progress Note-Pre Operative ---
Pre-Operative Progress Note H&P Reviewed The H&P was reviewed, patient examined and no changes noted. Time Seen by Provider: 10:37 Date H&P Reviewed: September 09, 2021 Time H&P Reviewed: 10:37 Pre-Operative Diagnosis: Biliary Dyskinesia CINDY GUTIERREZ DO September 09, 2021 10:40
[2021-09-09] MEDS ORDERED: ceFAZolin 2 GM IV Premixed 50 ML IV ONE (10:45)
[2021-09-09] MEDS ORDERED: LIDOCAINE PF 2% 5 ML (XYLOCAINE) VIAL ONE (10:52)
[2021-09-09] MEDS ORDERED: SEVOFLURANE (ULTANE) 15 ML INHAL SOLN ONE ×2 (10:52→12:09)
[2021-09-09] MEDS ORDERED: MIDAZOLAM 2 MG/2 ML (VERSED) VIAL ONE (10:52)
[2021-09-09] MEDS ORDERED: fentaNYL INJ 100 MCG/2 ML AMP ONE ×2 (10:52→12:12)
[2021-09-09] MEDS ORDERED: proPOfol 200 MG/20 ML (DIPRIVAN) VIAL IV ONE ×2 (10:52→12:23)
[2021-09-09] MEDS ORDERED: ONDANSETRON 4 MG/2 ML (SDV) Z0FRAN ONE (10:52)
[2021-09-09] MEDS: LACTATED RINGERS 1,000 ML IV SCH ×2 (11:04→12:20)
[2021-09-09] MEDS ORDERED: LIDOCAINE/EPI 2% 1:200,00 (XYLOCAINE) 20 ML VIAL ONE (11:44)
[2021-09-09] MEDS ORDERED: ROCURONIUM 50 MG/5 ML (ZEMURON) VIAL IV ONE (12:09)
[2021-09-09] MEDS ORDERED: GLYCOPYRROLATE 0.2 MG/ML (ROBINUL) 2 ML VIAL ONE (12:30)
[2021-09-09] MEDS ORDERED: NEOSTIGMINE 3 MG/3 ML VIAL ONE (12:30)
--- NOTE | 2021-09-09 12:37 | Progress Note-Post Operative ---
Post-Operative Progess Note Surgeon (s)/Key Account Director (s) Surgeon CINDY GUTIERREZ DO Key Account Director: Maia Pre-Operative Diagnosis Biliary Dyskinesia Post-Operative Diagnosis same plus adhesions Procedure & Operative Findings Date of Procedure 09/09/21 Procedure Performed/Findings PROCEDURE: Laparoscopic cholecystectomy with intraoperative cholangiogram. COMPLICATIONS: None. PROCEDURE: The patient was taken to the operating suite and was prepped and draped in sterile fashion. A surgical pause was performed. Justsuperior to the umbilicus, a 12 mm incision was made. Dissection was taken down to the fascia, which was then scored and grasped with a Nano and the abdomen was then entered. An 0 Vicryl suture was placed in a txbipa-go-fmjhy fashion and a Grvoer trocar was placed and secured. Pneumoperitoneum was achieved. A 5mm trochar place in the subxyphoid and 2 in the right upper quadrant. The gallbladder was noted to have adhesions (ususally indicative of previous attacks) which were taken down and then grasped at the fundus, taken in the superior direction. Once all adhesions were taken down, grasped at Smith's pouch and pulled in the infero-lateral direction. The cystic duct, and cystic artery were then dissected out. Clip was placed on the distal portion of the cystic duct which was then partially transected. An arrow catheter was inserted into the duct. The cholangiogram was then performed. No filing defects and contrast made its way into the duodenum. Catheter removed. Clips were placed on proximal portion of the cystic duct and then the duct was then transected. Clips were placed along the proximal and distal portion of the cystic artery which was then transected. Hook cautery was used to dissect the gallbladder from the gallbladder fossa achieving hemostasis. The gallbladder was placed in an Endobag and removed through the 12 mm trocar site. The abdomen was then reinspected. Copious amounts of irrigation were used to irrigate the abdomen and there were no signs of active bleeding. Hemostasis had been achieved. The 12 mm fascial defect was then closed with 0 Vicryl suture that had been placed in a oxlril-rk-duibh fashion. The abdomen was then desufflated, the trocars were removed. The abdomen was then washed and dried. The skin was then closed using 4-0 Monocryl in a subcuticular fashion. The abdomen was washed and dried and Skin Affix was place over incisions. Patient tolerated the procedure well without any complications and was taken to the recovery room in stable condition. Dr. Carvalho assisted on this case helping to make incisions, close incisions, identify anatomy and hold anatomy out of the way. Anesthesia Type GET Estimated Blood Loss Estimated blood loss (mL): scant Specimens/Packing Specimens Removed GB and contents CINDY GUTIERREZ DO September 09, 2021 12:37
[2021-09-09] MEDS ORDERED: ACHD5005 PO (12:38)
--- NOTE | 2021-09-09 12:40 | Discharge Inst-Surgical ---
Discharge Inst-Surgical Depart Medication/Instructions New, Converted or Re-Newed RX: Transmitted to Pharmacy Patient Instructions Follow up Appt: Make appointment for 1 week. [phone] Instructions: No lifting greater than 20 pounds. No strenuous activity. May shower in 24 hours, no tub bath or soaking. Use incentive spirometer at home as directed. No Smoking Skin/Wound Care: May remove bandages in am. You need to leave the Dermabond on incision it will fall off on it's own. Symptoms to Report: Appetite Changes, Extremity Discoloration, Numbness/Tingling, Swelling Increased, Bleeding Excessive, Eyesight Changes, Pain Increased, Urine Color Change, Constipation(Persistent), Fever over 101 degree F, Pain/Pressure in chest, Urinating Difficulty, Cough Up/Vomit Blood, Heart Beat Irreg/Pounding, Pain/Pressure in jaw, Cramps in feet or legs, Lightheadedness, Pain/Pressure in shoulder, Diarrhea(Persistent), Memory Changes Suddenly, Questions/Concerns, Weight gain consecutive days, Dizziness/Fainting, Nausea/Vomiting, Shortness of Breath, Weight gain over 2 pounds If questions or concerns contact your physician Or seek help at emergency department. Activity Activity as Tolerated: Yes Activity Instructions: Avoid Stress to Incision Driving Instructions: No Driving/Refer to Diet Discharge Diet: Avoid Fatty Foods, Low Fat/Low Cholesterol Diet After 24 Hours: Clear Liquid if Nauseous If Any Problems/Questions/Issu: Contact Your Physician, Go to Emergency Room Skin/Wound Care Infection Signs and Symptoms: Increased Redness, Foul Odor of Wound, Increased Drainage, Skin Itchy or Has a Rash, Increased Swelling, Temperature Above 101 F Wound Care Comment: heating pad to shoulder or neck tonight for pain Bathing Instructions: Shower Stitches/[place]/Dermabond Dis: Dermabond Ice Pack: Ice On and Off Site CINDY GUTIERREZ DO September 09, 2021 12:40
--- NOTE | 2021-09-09 12:52 | Anesthesia-General Post-Op ---
General Patient Condition Mental Status/LOC: Same as Preop Cardiovascular: Satisfactory Nausea/Vomiting: Absent Respiratory: Satisfactory Pain: Controlled Complications: Absent Post Op Complications Complications None Follow Up Care/Instructions Patient Instructions None needed. Anesthesia/Patient Condition Patient Condition Patient is doing well, no complaints, stable vital signs, no apparent adverse anesthesia problems. No complications reported per nursing. VIDAL FARIAS CRNA September 09, 2021 12:52
[2021-09-09] MEDS ORDERED: ONDANSETRON 4 MG/2 ML (SDV) Z0FRAN IVP PRN (13:00)
[2021-09-09] MEDS ORDERED: MEPERIDINE (DEMEROL) INJ 50 MG/ML IVP ONE (13:00)
[2021-09-09] MEDS ORDERED: fentaNYL INJ 100 MCG/2 ML AMP IVP ONE (13:00)
[2021-09-09] MEDS ORDERED: morphine INJ 10 MG/ML 1ML (SYR OR VIAL) IVP ONE (13:00)
[2021-09-09] MEDS ORDERED: HYDROcodone/APAP 5 MG/325 MG (LORTAB) TAB PO ONE (14:30)
--- NOTE | 2021-09-09 15:21 | Diagnostic Imaging Report ---
INDICATION: Right upper quadrant abdominal pain and nausea. PROCEDURE: Intraoperative cholangiogram. Cholecystectomy. Total fluoroscopy time: 7 seconds Total number of fluoroscopic images saved: 34 FINDINGS: Multiple intraoperative image intensifier digital subtraction images of the right upper abdominal quadrant were obtained during intraoperative cholangiogram. Images provided show contrast opacifying the intra and extrahepatic biliary ductal systems. No large intraluminal filling defect is seen. There is no focal stricture. Contrast empties into the small bowel, as expected. Please note, interpreting radiologist was not present during the procedure. IMPRESSION:. Fluoroscopic guidance provided during intraoperative cholangiogram, as above. Dictated by: Dictated on workstation # [id number]
== END 2021-09-09 15:16 | disposition home or self-care (01) ==
LOC: SDC 10:25
PROVIDERS: ATTEND Surgery
DX: K82.8 Other specified diseases of gallbladder (principal); K81.1 Chronic cholecystitis
CPT/HCPCS: 76000; 87081; 88304; 94664

== ENCOUNTER 2021-10-06 05:41 | Outpatient (CLI) | payer OTHER ==
[~2021-10-06] VITALS: Ht 182.9 cm; Wt 131.1 kg
[~2021-10-06 05:41] MED LIST changes: +ACHD5005 PO
== END 2021-10-06 08:22 | disposition home or self-care (01) ==
LOC: PREOP 05:41
PROVIDERS: ATTEND Surgery
DX: Z01.818 Encounter for other preprocedural examination (principal)

== ENCOUNTER 2021-10-11 09:57 | Day surgery (SDC) | payer OTHER ==
[~2021-10-11] VITALS: Ht 182.9 cm; Wt 131.1 kg
[2021-10-11] MEDS ORDERED: LACTATED RINGERS 1,000 ML IV ONE (10:03)
[2021-10-11] MEDS ORDERED: LACTATED RINGERS 1,000 ML IV STA (10:07)
--- NOTE | 2021-10-11 10:10 | Progress Note-Pre Operative ---
Pre-Operative Progress Note H&P Reviewed The H&P was reviewed, patient examined and no changes noted. Time Seen by Provider: 10:08 Date H&P Reviewed: Oct 11, 2021 Time H&P Reviewed: 10:08 Pre-Operative Diagnosis: CINDY RICE DO Oct 11, 2021 10:10
[2021-10-11 10:15] VITALS: BP 134/87
[2021-10-11] MEDS ORDERED: HURRICAINE EXT TUBE (BENZOCAINE) XX PRN (10:15)
[2021-10-11] MEDS ORDERED: MIDAZOLAM 5 MG/5 ML (VERSED) VIAL ONE (11:15)
[2021-10-11] MEDS ORDERED: PROPOFOL INJECTION 50 ML IV ONE (11:16)
[2021-10-11 11:30] VITALS: BP 102/54
--- NOTE | 2021-10-11 11:32 | Endoscopy Discharge Instruct ---
Endo Procedure/Findings Findings 1.: Gastritis 2.: Other Findings (mild esophagitis) Discharge Instructions - Activity: You might feel a little sleepy until tomorrow. This is due to the medicine you received to relax you. Until tomorrow, you should: NOT drive a car, operate machinery or power tools. NOT drink any alcoholic beverages. NOT make any important decisions or sign importortant papers. Do not return to work until tomorrow, unless otherwise instructed. Resume previous activities tomorrow. Diet: Start by taking liquids. If you tolerate liquids, advance to solid food. 1.: EGD in 3 years Notify Physician - If you experience excessive bleeding, unusual abdominal pain, fever, or chest pain, contact your doctor immediately. CINDY GUTIERREZ DO Oct 11, 2021 11:32
--- NOTE | 2021-10-11 11:32 | Progress Note-Post Operative ---
Post-Operative Progess Note Surgeon (s)/Decorating Instructor (s) Surgeon CINDY GUTIERREZ DO Decorating Instructor: none Pre-Operative Diagnosis GERD Post-Operative Diagnosis Gastritis Esophagitis Procedure & Operative Findings Date of Procedure 10/11/21 Procedure Performed/Findings EGD with bx PROCEDURE NOTE: After informed consent was obtained, the patient was brought to the endoscopy suite, placed in bed in left lateral decubitus position. He was administered IV sedation by the DERMATOLOGIST who then monitored vitals the entire time, heart rate, blood pressure and pulse ox and the scope was inserted down the mouth through the esophagus into the stomach. On the way down, noted some mild esophagitis, took a picture, pushed into the stomach, pushed past the antrum into the duodenum. Duodenum looked good. Pulled back and did a biopsy of antrum, then retroflexed the scope, don't think I saw a hiatal hernia, took a picture and then pulled the scope into the GE junction, took another picture of the and then did a biopsy of the GE junction. Pushed the scope back into the stomach, suctioned all the air out of the stomach. At this point pulled the scope up the esophagus and out the mouth. The patient tolerated the procedure, and he recovered in endoscopy suite. Anesthesia Type IV sedation by DERMATOLOGIST Estimated Blood Loss Estimated blood loss (mL): scant Specimens/Packing Specimens Removed antral bx GE jxn bx CINDY GUTIERREZ DO Oct 11, 2021 11:31
[2021-10-11 11:35] VITALS: BP 96/51
--- NOTE | 2021-10-11 11:39 | Anesthesia-General Post-Op ---
MAC Patient Condition Mental Status/LOC: Same as Preop Cardiovascular: Satisfactory Nausea/Vomiting: Absent Respiratory: Satisfactory Pain: Controlled Complications: Absent Post Op Complications Complications None Follow Up Care/Instructions Patient Instructions None needed. Anesthesiology Discharge Order Discharge Order Patient is doing well, no complaints, stable vital signs, no apparent adverse anesthesia problems. No complications reported per nursing. OLYA RICO CRNA Oct 11, 2021 11:39
[2021-10-11 11:40] VITALS: BP 89/54
[2021-10-11 11:45] VITALS: BP 97/57
[2021-10-11 12:05] VITALS: BP 99/66
== END 2021-10-11 12:15 | disposition home or self-care (01) ==
LOC: ENDO 09:57
PROVIDERS: ATTEND Surgery
DX: K21.00 Gastro-esophageal reflux disease with esophagitis, without bleeding (principal); K29.70 Gastritis, unspecified, without bleeding; E66.01 Morbid (severe) obesity due to excess calories; Z68.41 Body mass index [BMI] 40.0-44.9, adult

== ENCOUNTER 2022-04-12 11:05 | Emergency (ER) | payer OTHER ==
[~2022-04-12] VITALS: Ht 182.8 cm; Wt 115.8 kg
--- NOTE | 2022-04-12 11:27 | ED GI ---
General Chief Complaint: Abdominal/GI Problems Stated Complaint: ABD PAIN Nursing Triage Note: PT AMB TO [facility] WITH COMPLAINT OF VOMITING AND NEW HERNIA. STATES LAST NIGHT AFTER COUGHING, HE NOTICED HE HAD A HERNIA. DENIES PAIN. WAS ABLE TO PUSH HERNIA BACK IN. Source of Information: Patient Exam Limitations: No Limitations History of Present Illness Date Seen by Provider: Apr 12, 2022 Time Seen by Provider: 11:14 Initial Comments 26-year-old male presents emergency department today for hernia. He states "it is just above my gallbladder scar." He points to just inferior to his umbilicus. He states it used to be intermittent however it is coming out more frequently. He has had a coughing illness lately and is coming out much more than usual. He denies any real pain in the area he is always able to push it back in. He has seen Dr. Valverde in the past who only recommended treatment if he became symptomatic. No changes in his bowels. He has had some mild vomiting today, thinks he may have a GI bug.. No fevers or chills. Allergies and Home Medications Allergies Coded Allergies: LESANo Known Allergies (Unverified Allergy, Mild, 09/18/08) Patient Home Medication List Home Medication List Reviewed: Yes Review of Systems Review of Systems Constitutional: no symptoms reported EENTM: No Symptoms Reported Respiratory: No Symptoms Reported Cardiovascular: No Symptoms Reported Gastrointestinal: Vomiting, Other (Abdominal hernia) Genitourinary: No Symptoms Reported Musculoskeletal: no symptoms reported Skin: no symptoms reported Psychiatric/Neurological: No Symptoms Reported Endocrine: No Symptoms Reported Hematologic/Lymphatic: No Symptoms Reported Past Hvtsktz-Ngbpua-Fyglxp Hx Patient Social History Tobacco Use?: No Use of E-Cig and/or Vaping dev: No Substance use?: Yes Substance type: Marijuana Alcohol Use?: No Pt feels they are or have been: No Immunizations Up To Date Tetanus Booster (TDap): Less than 5yrs PED Vaccines UTD: Yes First/Initial COVID19 Vaccinat: 2020 Second COVID19 Vaccination Alejandro: 2020 Third COVID19 Vaccination Date: NO Seasonal Allergies Seasonal Allergies: No Past Medical History Surgery/Hospitalization HX: DENTAL, GASTRITIS Surgeries: Yes (WISDOM TEETH) Gallbladder Respiratory: No Asthma Cardiac: No Neurological: Yes Headaches /Migraines Reproductive Disorders: No Genitourinary: No Gastrointestinal: Yes Gall Bladder Disease Musculoskeletal: No Endocrine: No HEENT: No Cancer: No Psychosocial: Yes Anxiety, Depression Integumentary: No Blood Disorders: No Adverse Reaction/Blood Tranf: No Family Medical History Reviewed Nursing Family Hx No Pertinent Family Hx Physical Exam Vital Signs Vital Signs - First Documented 04/12/22 11:08 Temp 36.2 Pulse 63 Resp 17 B/P (MAP) 136/96 (109) Pulse Ox 98 O2 Delivery Room Air Capillary Refill : Less Than 3 Seconds Height/Weight/BMI Height: 6'0" Weight: 300lbs. oz. [id number]; 34.00 BMI Method:Stated General Appearance: WD/WN, no apparent distress HEENT: normal ENT inspection, pharynx normal Neck: supple, normal inspection Respiratory: chest non-tender, lungs clear, normal breath sounds, no respiratory distress, no accessory muscle use Cardiovascular: regular rate, rhythm, no edema, no gallop, no JVD, no murmur Gastrointestinal: normal bowel sounds, non tender, soft, no organomegaly, other (Small incisional hernia just superior to the umbilicus. Around 2 cm maximal diameter and easily reducible. No overlying skin changes. No tenderness) Extremities: normal range of motion, non-tender, normal inspection, no pedal edema, no calf tenderness Back: normal inspection, no CVA tenderness, no vertebral tenderness Neurologic/Psychiatric: alert, normal mood/affect, oriented x 3 Skin: normal color, warm/dry Progress/Results/Core Measures Results/Orders Vital Signs/I&O 04/12/22 11:08 Temp 36.2 Pulse 63 Resp 17 B/P (MAP) 136/96 (109) Pulse Ox 98 O2 Delivery Room Air Blood Pressure Mean: 109 Departure Communication (Admissions) Patient is hemodynamically stable. Benign abdominal exam. He has a small easily reducible periincisional hernia just superior to his umbilicus. There is no evidence of strangulation, incarceration at this time. He has had some vomiting today. I think this is incidental and not related to his hernia at all. Discharged in stable condition with surgical follow-up and strict return precautions for incarcerated or strangulated symptoms. Impression Primary Impression: Incisional hernia Qualified Codes: K43.2 - Incisional hernia without obstruction or gangrene Disposition: 01 HOME, SELF-CARE Condition: Stable Departure-Patient Inst. Referrals: CINDY VAVLERDE MAYRA L APRN (PCP) Primary Care Physician Patient Instructions: Abdominal Wall Hernias Add. Discharge Instructions: As discussed as long as there is not significant pain, redness over the skin and you are able to push it back in without difficulties and there is no indication for an emergent treatment. I do recommend now that you are symptomatic to see Dr. Valverde to discuss possible surgical repair. Return to the emergency department for any severe concerns. All discharge instructions reviewed with patient and/or family. Voiced understanding. SAMINA SCHWARTZ DO Apr 12, 2022 11:27
[2022-04-12 11:30] VITALS: BP 136/96
== END 2022-04-12 11:31 | disposition home or self-care (01) ==
LOC: EDUNIT# 11:05 → ER 11:07
DX: K43.2 Incisional hernia without obstruction or gangrene (principal)
CPT/HCPCS: 99283

== ENCOUNTER 2022-04-20 05:31 | Outpatient (CLI) | payer OTHER ==
[~2022-04-20] VITALS: Ht 182.9 cm; Wt 116.6 kg
[2022-04-21] MEDS ORDERED: FLUO20CA42 PO (12:56)
[2022-04-21] MEDS ORDERED: HYDR-3584 PO (12:56)
== END 2022-04-21 13:06 | disposition home or self-care (01) ==
LOC: PREOP 05:31
PROVIDERS: ATTEND Surgery
DX: Z01.818 Encounter for other preprocedural examination (principal)

== ENCOUNTER 2022-04-27 07:04 | Day surgery (SDC) | payer OTHER ==
[~2022-04-27] VITALS: Ht 182.9 cm; Wt 116.6 kg
[2022-04-27] VITALS (13 sets, daily range): BP systolic 121–158; BP diastolic 68–91
[~2022-04-27 07:04] MED LIST changes: +FLUO20CA42 PO; +HYDR-3584 PO
--- NOTE | 2022-04-27 08:58 | Progress Note-Pre Operative ---
Pre-Operative Progress Note Date of Available H&P: Apr 19, 2022 Date H&P Reviewed: Apr 27, 2022 Time H&P Reviewed: 08:54 History & Physical: H&P Reviewed, Patient Examed, No changes noted Pre-Operative Diagnosis: Incarcerated incisional hernia CINDY GUTEIRREZ DO Apr 27, 2022 08:58
[2022-04-27] MEDS ORDERED: ceFAZolin INJECTION 2,000 MG in NS (IVPB) 50 ML IV ONE (09:00)
[2022-04-27] MEDS ORDERED: LACTATED RINGERS 1,000 ML IV PRN (09:00)
[2022-04-27] MEDS ORDERED: BUP/EPI 0.25% 1:200,000 (MARCAINE) 30 ML VIAL ONE (09:32)
[2022-04-27] MEDS ORDERED: MIDAZOLAM 2 MG/2 ML (VERSED) VIAL ONE (10:25)
[2022-04-27] MEDS ORDERED: ONDANSETRON 4 MG/2 ML (SDV) Z0FRAN ONE ×2 (10:25→12:31)
[2022-04-27] MEDS ORDERED: fentaNYL INJ 100 MCG/2 ML AMP ONE ×2 (10:25→11:44)
[2022-04-27] MEDS ORDERED: NEOSTIGMINE 3 MG/3 ML VIAL ONE (10:25)
[2022-04-27] MEDS ORDERED: LIDOCAINE PF 2% 5 ML (XYLOCAINE) VIAL ONE (10:25)
[2022-04-27] MEDS ORDERED: proPOfol 200 MG/20 ML (DIPRIVAN) VIAL IV ONE (10:25)
[2022-04-27] MEDS ORDERED: ROCURONIUM 10 MG/ML 5 ML SYRINGE IV ONE ×2 (10:25→11:28)
[2022-04-27] MEDS ORDERED: GLYCOPYRROLATE 0.2 MG/ML (ROBINUL) 2 ML VIAL ONE (10:25)
--- NOTE | 2022-04-27 11:44 | Progress Note-Post Operative ---
Post-Operative Progess Note Surgeon (s)/Dehairing Machine Tender (s) Surgeon CINDY GUTIERREZ DO Dehairing Machine Tender: Maia Pre-Operative Diagnosis Incarcerated incisional hernia Post-Operative Diagnosis Same plus incarcerated umbilical hernia Procedure & Operative Findings Date of Procedure 04/27/22 Procedure Performed/Findings 1) Laparoscopic Incarcerated incisional hernia - appx 4cm 2) Laparoscopic Incarcerated umbilical hernia - under 3cm INDICATIONS: The patient is a 26, male with an incarcerated incisional hernia, which has continued to increase in size and cause discomfort. The patient was explained the risk and benefits of the procedure and wished to proceed with the procedure. Consent was signed on the chart. DESCRIPTION OF PROCEDURE: The patient was taken into the operating suite, prepped and draped in sterile fashion. Surgical pause was performed. Local anesthetic was infiltrated in left upper quadrant. A #11 blade scalpel was used to make a small skin incision. Cautery was used to dissect down to the fascia, which was then scored and divided the muscle, went through the posterior sheath and a balloon trocar was inserted into the abdomen. The abdomen was then insufflated. Found an incarcerated incisional hernia, actually larger than I thought it would be. It measured about 4cm x 3.2cm. Also noted just below this was an incarcerated umbilical hernia. A 5 mm trocar was placed in the right lower quadrant and a 5 mm trocar was placed in left lower quadrant. Used the ligasure to get the hernia contents out of the defect and to free up the Falciform ligament so that the mesh would lay in flat. Also took the fat out of the umbilical hernia and pictures were taken. The defect was then closed using 0 Vicryl with a Veto-Lorrie two separate stitches. Echo Ventralight mesh 20 x 15cm was then inserted in the abdomen grabbed through the stab incision. The balloon was inflated on the mesh. The mesh went past the incisional hernia and umbilical hernia by approximately 6cm on either side. Circumferential tacks were placed with a SecureStrap Tacker, used two tackers to get it secure. The balloon was then removed and inner crown was created as well. The mesh was tacked with pressure being decreased.The 12 mm fascial defect was then closed using 0 Vicryl. Had taken a picture of the mesh it was laying in very nicely. The abdomen was then desufflated,the trocars were removed. The skin was then closed using 4- 0 Monocryl in a running subcuticular fashion. The abdomen was washed and dried and Skin Affix was placed over the incisions. The patient tolerated procedure well without any complications. He was taken to recovery room in stable condition. Dr. Carvalho assisted on this case helping to make incisions, close incisions, identify anatomy, hold anatomy out of the way and place tacks. Anesthesia Type GET Estimated Blood Loss Estimated blood loss (mL): scant Specimens/Packing Specimens Removed hernia contents CINDY GUTIERREZ DO Apr 27, 2022 11:44
[2022-04-27] MEDS ORDERED: ACHD5005 PO (11:45)
--- NOTE | 2022-04-27 11:47 | Discharge Inst-Surgical ---
Discharge Inst-Surgical Depart Medication/Instructions New, Converted or Re-Newed RX: Transmitted to Pharmacy Patient Instructions Follow up Appt: Make appointment for 1 week. [phone] Instructions: No lifting greater than 20 pounds. No strenuous activity. May shower in 24 hours, no tub bath or soaking. Use incentive spirometer at home as directed. No Smoking Skin/Wound Care: May remove bandages in am. You need to leave the Dermabond on incision it will fall off on it's own. Symptoms to Report: Appetite Changes, Extremity Discoloration, Numbness/Tingling, Swelling Increased, Bleeding Excessive, Eyesight Changes, Pain Increased, Urine Color Change, Constipation(Persistent), Fever over 101 degree F, Pain/Pressure in chest, Urinating Difficulty, Cough Up/Vomit Blood, Heart Beat Irreg/Pounding, Pain/Pressure in jaw, Cramps in feet or legs, Lightheadedness, Pain/Pressure in shoulder, Diarrhea(Persistent), Memory Changes Suddenly, Questions/Concerns, Weight gain consecutive days, Dizziness/Fainting, Nausea/Vomiting, Shortness of Breath, Weight gain over 2 pounds If questions or concerns contact your physician Or seek help at emergency department. Activity Activity as Tolerated: Yes Activity Instructions: Avoid Stress to Incision Driving Instructions: No Driving/Refer to Dr. Stuart Discharge Diet: No Restrictions Diet After 24 Hours: Clear Liquid if Nauseous If Any Problems/Questions/Issu: Contact Your Physician, Go to Emergency Room Skin/Wound Care Infection Signs and Symptoms: Increased Redness, Foul Odor of Wound, Increased Drainage, Skin Itchy or Has a Rash, Increased Swelling, Temperature Above 101 F Wound Care Comment: heating pad to shoulder or neck tonight for pain Bathing Instructions: Shower Stitches/[place]/Dermabond Dis: Dermabond Ice Pack: Ice On and Off Site CINDY GUTIERREZ DO Apr 27, 2022 11:47
[2022-04-27] MEDS ORDERED: SUGAMMADEX 500 MG/5 ML VIAL (BRIDION) IV ONE (12:02)
[2022-04-27] MEDS ORDERED: SEVOFLURANE (ULTANE) 15 ML INHAL SOLN ONE (12:03)
[2022-04-27] MEDS ORDERED: morphine INJ 10 MG/ML 1ML (SYR OR VIAL) ONE (12:18)
[2022-04-27] MEDS ORDERED: morphine INJ 10 MG/ML 1ML (SYR OR VIAL) IVP ONE (12:30)
[2022-04-27] MEDS ORDERED: HYDROmorphone 2 MG/ML VIAL (DILAUDID) IV ONE (12:30)
[2022-04-27] MEDS: ONDANSETRON 4 MG/2 ML (SDV) Z0FRAN IVP PRN ×2 (12:32→13:11)
--- NOTE | 2022-04-27 13:42 | Anesthesia-General Post-Op ---
General Patient Condition Mental Status/LOC: Same as Preop Cardiovascular: Satisfactory Nausea/Vomiting: Absent Respiratory: Satisfactory Pain: Controlled Complications: Absent Post Op Complications Complications None Follow Up Care/Instructions Patient Instructions None needed. Anesthesia/Patient Condition Patient Condition Patient was doing well in PACU. He initially had some pain which is to be expected and improved with Rx. He had no complaints, stable vital signs, no apparent adverse anesthesia problems. No complications reported per nursing. YURIDIA ZHANG DO Apr 27, 2022 13:42
[2022-04-27] MEDS ORDERED: HYDROcodone/APAP 5 MG/325 MG (LORTAB) TAB ONE (13:54)
[2022-04-27] MEDS ORDERED: HYDROcodone/APAP 5 MG/325 MG (LORTAB) TAB PO ONE (14:00)
== END 2022-04-27 15:40 | disposition home or self-care (01) ==
LOC: SDC 07:04
PROVIDERS: ATTEND Surgery
DX: K43.0 Incisional hernia with obstruction, without gangrene (principal); K42.0 Umbilical hernia with obstruction, without gangrene; E66.9 Obesity, unspecified; Z68.34 Body mass index [BMI] 34.0-34.9, adult
CPT/HCPCS: 87081